=== PATIENT | male | born 1950 | race Caucasian/White ===

== ENCOUNTER 2018-04-26 15:24 | Inpatient (IN) ==
[2018-04-26 17:50] LABS: CKMB % 6.9 %
[2018-04-26 17:51] LABS: Troponin I Only 0.738 NG/ML (0.00-0.045)
[2018-04-26 18:51] LABS: ABG Base Excess -0.5 MMOL/L (-2.5-2.5); ABG HCO3 23.6 MMOL/L (20-26); ABG Oxygen Saturation 71.3 % (95-100); ABG PCO2 46.1 MM HG (35-48); ABG PH 7.347 (7.35-7.45); ABG PO2 42.6 MM HG (80-95); ABG TCO2 23.7 MMOL/L (23-27)
[2018-04-26 19:11] LABS: Basophils % 0.3 % (0.0-0.8); Eosinophils % 0.2 % (0.00-10.9); Hematocrit 25.2 VOL% (42.0-52.0); Hemoglobin 8.3 GM/DL (14.0-18.0); Immature Granulocytes % 1.8 %; Immature Granulocytes Absolute 0.17 #; Lymphocytes # 0.7 10*3/uL (1.4-4.0); Lymphocytes % 7.1 % (21.2-54.2); Mean Corpuscular HGB Conc 32.9 GM/DL (32-36); Mean Corpuscular Hemoglobin 33 PG (27-34); Mean Corpuscular Volume 100.4 FL (87-102); Mean Platelet Volume 10.5 FL (9.6-12.0); Monocytes # 0.6 10*3/uL (0.11-0.8); Monocytes % 6.5 % (1.7-12.7); Neutrophils % 84.1 % (38.7-73.9); Platelet Count 251 T/CUMM (130-400); Red Blood Count 2.51 MC/CUMM (3.8-5.5); Red Cell Distribution Width 15.9 % (9.3-17.3); White Blood Count 9.5 T/CUMM (4-12)
[2018-04-26 19:15] LABS: Apearance,Urine CLEAR (Clear); Bacteria,Urine Occasional /HPF (Few); Bilirubin,Urine Negative (Negative); Blood, Urine Negative (Negative); Glucose,Urine (UA) >=500 mg/dL (Negative); Hyaline Casts,Urine 1 /LPF (0-3); Ketones,Urine Negative (Negative); Nitrite,Urine Negative (Negative); Protein,Urine 30 MG/DL; RBC,Urine 2 /HPF (0-4); Urine Color Straw (Yellow); Urine Specific Gravity 1.008 (1.001-1.035); Urine Urobilinogen < 2.0 EU/DL (0.2-1.0); WBC,Urine 13 /HPF (0-6)
[2018-04-26 19:39] LABS: Albumin 3.2 G/DL (3.4-5.0); Bilirubin,Total 0.4 MG/DL (0.2-1.0); Calcium 7.4 MG/DL (8.5-10.1); Osmolality,Calculated 310.7 MOS/KG (273-304); Potassium 4.6 MMOL/L (3.5-5.1); Total Protein 6.7 G/DL (6.4-8.3)
[2018-04-26 21:41] LABS: Pt O2 Delivery Device Ventilator
[2018-04-26 21:42] LABS: ABG Base Excess 0.7 MMOL/L (-2.5-2.5); ABG HCO3 26.6 MMOL/L (20-26); ABG Oxygen Saturation 98.9 % (95-100); ABG PCO2 49.2 MM HG (35-48); ABG PH 7.351 (7.35-7.45); ABG PO2 281.9 MM HG (80-95); ABG TCO2 28.1 MMOL/L (23-27)
[2018-04-27 00:59] LABS: Basophils % 0.1 % (0.0-0.8); Hematocrit 23.1 VOL% (42.0-52.0); Hemoglobin 7.8 GM/DL (14.0-18.0); Immature Granulocytes % 0.8 %; Immature Granulocytes Absolute 0.07 #; Lymphocytes # 0.4 10*3/uL (1.4-4.0); Mean Corpuscular HGB Conc 33.8 GM/DL (32-36); Mean Corpuscular Hemoglobin 34 PG (27-34); Mean Corpuscular Volume 99.6 FL (87-102); Mean Platelet Volume 10.9 FL (9.6-12.0); Monocytes # 0.2 10*3/uL (0.11-0.8); Monocytes % 2.2 % (1.7-12.7); Neutrophils # 7.9 10*3/uL (1.4-7.4); Neutrophils % 91.9 % (38.7-73.9); Platelet Count 211 T/CUMM (130-400); Red Blood Count 2.32 MC/CUMM (3.8-5.5); Red Cell Distribution Width 15.9 % (9.3-17.3); White Blood Count 8.6 T/CUMM (4-12)
[2018-04-27 01:18] LABS: Albumin 2.9 G/DL (3.4-5.0); Bilirubin,Total 0.5 MG/DL (0.2-1.0); Calcium 7.4 MG/DL (8.5-10.1); Osmolality,Calculated 314.1 MOS/KG (273-304); Potassium 4.4 MMOL/L (3.5-5.1); Total Protein 6.1 G/DL (6.4-8.3)
[2018-04-27 01:19] LABS: Band Neutrophils 1 % (0-10); Lymphocytes 8 % (20-55); Segmented Neutrophils 91 % (50-85); Total Cells Counted 100
[2018-04-27 01:20] LABS: Calcium 7.3 MG/DL (8.5-10.1); Macrocytosis 2+; Osmolality,Calculated 313.1 MOS/KG (273-304); Platelet Estimate Normal; Potassium 4.4 MMOL/L (3.5-5.1); Risk Ratio 3.65; VLDL CHOLESTEROL 51.4 MG/DL
[2018-04-27 01:33] LABS: CKMB % 10.5 %
[2018-04-27 04:43] LABS: ABG Base Excess -1.2 MMOL/L (-2.5-2.5); ABG HCO3 23.4 MMOL/L (20-26); ABG Oxygen Saturation 99.4 % (95-100); ABG PCO2 32.8 MM HG (35-48); ABG PH 7.442 (7.35-7.45); ABG TCO2 20.5 MMOL/L (23-27); Pt O2 Delivery Device Ventilator
[2018-04-27 08:25] LABS: Basophils % 0.1 % (0.0-0.8); Hematocrit 28.1 VOL% (42.0-52.0); Immature Granulocytes % 0.8 %; Immature Granulocytes Absolute 0.06 #; Lymphocytes # 0.5 10*3/uL (1.4-4.0); Lymphocytes % 5.6 % (21.2-54.2); Mean Corpuscular HGB Conc 34.2 GM/DL (32-36); Mean Corpuscular Hemoglobin 32 PG (27-34); Monocytes # 0.2 10*3/uL (0.11-0.8); Monocytes % 2.6 % (1.7-12.7); Neutrophils # 7.3 10*3/uL (1.4-7.4); Neutrophils % 90.9 % (38.7-73.9); Platelet Count 199 T/CUMM (130-400); Red Cell Distribution Width 16.4 % (9.3-17.3)
[2018-04-27 08:33] LABS: Red Blood Count 3.02 MC/CUMM (3.8-5.5)
[2018-04-27 08:34] LABS: Hemoglobin 9.6 GM/DL (14.0-18.0)
[2018-04-27 08:58] LABS: Anisocytosis 1+; Band Neutrophils 16 % (0-10); Lymphocytes 3 % (20-55); Platelet Estimate Normal; Polychromasia Slight; Segmented Neutrophils 81 % (50-85); Total Cells Counted 100
[2018-04-27 09:07] LABS: CKMB % 10.7 %
[2018-04-27 16:42] LABS: Basophils % 0.1 % (0.0-0.8); Hemoglobin 9.1 GM/DL (14.0-18.0); Immature Granulocytes % 0.7 %; Immature Granulocytes Absolute 0.06 #; Lymphocytes # 0.4 10*3/uL (1.4-4.0); Lymphocytes % 4.6 % (21.2-54.2); Mean Corpuscular HGB Conc 33.7 GM/DL (32-36); Mean Corpuscular Hemoglobin 32 PG (27-34); Mean Corpuscular Volume 95.7 FL (87-102); Mean Platelet Volume 10.9 FL (9.6-12.0); Monocytes # 0.2 10*3/uL (0.11-0.8); Monocytes % 2.7 % (1.7-12.7); Neutrophils # 7.6 10*3/uL (1.4-7.4); Neutrophils % 91.9 % (38.7-73.9); Platelet Count 197 T/CUMM (130-400); Red Blood Count 2.82 MC/CUMM (3.8-5.5); Red Cell Distribution Width 16.4 % (9.3-17.3); White Blood Count 8.2 T/CUMM (4-12)
[2018-04-27 17:13] LABS: Band Neutrophils 1 % (0-10); Lymphocytes 7 % (20-55); Nucleated Red Blood Cells 1 (0-5); Segmented Neutrophils 89 % (50-85); Total Cells Counted 100
[2018-04-27 17:14] LABS: Anisocytosis 1+; Polychromasia 1+
[2018-04-27 17:15] LABS: Ovalocytes Few; Platelet Estimate Adequate
[2018-04-27 17:25] LABS: Folate 22.9 NG/ML (5.4-24.0); Vitamin B12 409 PG/ML (211-911)
[2018-04-28 03:22] LABS: Basophils % 0.1 % (0.0-0.8); Hematocrit 28.9 VOL% (42.0-52.0); Hemoglobin 9.9 GM/DL (14.0-18.0); Immature Granulocytes % 0.7 %; Immature Granulocytes Absolute 0.07 #; Lymphocytes # 0.4 10*3/uL (1.4-4.0); Lymphocytes % 3.6 % (21.2-54.2); Mean Corpuscular HGB Conc 34.3 GM/DL (32-36); Mean Corpuscular Hemoglobin 32 PG (27-34); Mean Corpuscular Volume 94.1 FL (87-102); Monocytes # 0.3 10*3/uL (0.11-0.8); Monocytes % 3.4 % (1.7-12.7); Neutrophils % 92.2 % (38.7-73.9); Platelet Count 206 T/CUMM (130-400); Red Blood Count 3.07 MC/CUMM (3.8-5.5); Red Cell Distribution Width 16.4 % (9.3-17.3); White Blood Count 9.8 T/CUMM (4-12)
[2018-04-28 03:25] LABS: ABG Base Excess -0.7 MMOL/L (-2.5-2.5); ABG HCO3 23.8 MMOL/L (20-26); ABG Oxygen Saturation 95.2 % (95-100); ABG PCO2 39.9 MM HG (35-48); ABG PH 7.389 (7.35-7.45); ABG PO2 78.1 MM HG (80-95); ABG TCO2 21.9 MMOL/L (23-27); Allen Test Positive; Pt O2 Delivery Device Ventilator
[2018-04-28 03:50] LABS: Calcium 8.3 MG/DL (8.5-10.1); Potassium 4.4 MMOL/L (3.5-5.1)
[2018-04-28 04:33] LABS: Band Neutrophils 1 % (0-10); Lymphocytes 6 % (20-55); Platelet Estimate Normal; Segmented Neutrophils 90 % (50-85); Total Cells Counted 100
[2018-04-28 09:01] LABS: CKMB % 9.5 %
[2018-04-28 09:02] LABS: Troponin I Only 25.5 NG/ML (0.00-0.045)
[2018-04-28 09:35] LABS: Sedimentation Rate-Westergren 32 MM/HR (0-20)
[2018-04-29 03:46] LABS: ABG Base Excess 0.1 MMOL/L (-2.5-2.5); ABG HCO3 24.5 MMOL/L (20-26); ABG PCO2 39.4 MM HG (35-48); ABG PH 7.405 (7.35-7.45); ABG TCO2 22.6 MMOL/L (23-27)
[2018-04-29 04:54] LABS: Hemoglobin 9.4 GM/DL (14.0-18.0); Immature Granulocytes % 1.2 %; Lymphocytes # 0.3 10*3/uL (1.4-4.0); Mean Corpuscular HGB Conc 32.4 GM/DL (32-36); Mean Corpuscular Hemoglobin 32 PG (27-34); Mean Corpuscular Volume 99.3 FL (87-102); Mean Platelet Volume 11.2 FL (9.6-12.0); Monocytes # 0.3 10*3/uL (0.11-0.8); Monocytes % 3.5 % (1.7-12.7); NRBC # 0.02 10*3/uL; Neutrophils # 7.9 10*3/uL (1.4-7.4); Neutrophils % 92.3 % (38.7-73.9); Platelet Count 187 T/CUMM (130-400); Red Blood Count 2.92 MC/CUMM (3.8-5.5); Red Cell Distribution Width 16.4 % (9.3-17.3); White Blood Count 8.6 T/CUMM (4-12)
[2018-04-29 05:18] LABS: Calcium 7.5 MG/DL (8.5-10.1); Lymphocytes 4 % (20-55); Osmolality,Calculated 322.8 MOS/KG (273-304); Platelet Estimate Adequate; Potassium 4.4 MMOL/L (3.5-5.1); Segmented Neutrophils 93 % (50-85); Total Cells Counted 100
[2018-04-29 05:19] LABS: Calcium 7.1 MG/DL (8.5-10.1); Hypochromasia 1+; Potassium 4.4 MMOL/L (3.5-5.1)
[2018-04-29 05:24] LABS: Albumin 2.9 G/DL (3.4-5.0); Bilirubin,Direct 0.16 MG/DL (0.0-0.20); Bilirubin,Indirect 0.6 MG/DL (0.0-1.0); Bilirubin,Total 0.8 MG/DL (0.2-1.0); Total Protein 6.1 G/DL (6.4-8.3)
[2018-04-29 10:35] LABS: Hemoglobin A1 (Alkaline) 97.1 % (96.5-98.5); Hemoglobin A2 (Alkaline) 2.9 % (1.5-3.5)
[2018-04-30 04:16] LABS: ABG Base Excess 3.5 MMOL/L (-2.5-2.5); ABG HCO3 27.6 MMOL/L (20-26); ABG Oxygen Saturation 98.9 % (95-100); ABG PCO2 44.2 MM HG (35-48); ABG PH 7.417 (7.35-7.45); ABG TCO2 25.9 MMOL/L (23-27); Allen Test Positive; Pt O2 Delivery Device Ventilator
[2018-04-30 05:33] LABS: Eosinophils % 0.6 % (0.00-10.9); Hematocrit 29.6 VOL% (42.0-52.0); Hemoglobin 9.8 GM/DL (14.0-18.0); Immature Granulocytes % 1.4 %; Immature Granulocytes Absolute 0.09 #; Lymphocytes # 0.6 10*3/uL (1.4-4.0); Mean Corpuscular HGB Conc 33.1 GM/DL (32-36); Mean Corpuscular Hemoglobin 33 PG (27-34); Monocytes # 0.5 10*3/uL (0.11-0.8); Monocytes % 7.9 % (1.7-12.7); Neutrophils # 5.2 10*3/uL (1.4-7.4); Neutrophils % 81.1 % (38.7-73.9); Platelet Count 169 T/CUMM (130-400); Red Blood Count 2.96 MC/CUMM (3.8-5.5); Red Cell Distribution Width 16.3 % (9.3-17.3); White Blood Count 6.4 T/CUMM (4-12)
[2018-04-30 05:48] LABS: Calcium 7.3 MG/DL (8.5-10.1); Potassium 3.7 MMOL/L (3.5-5.1)
[2018-04-30 05:49] LABS: Calcium 7.2 MG/DL (8.5-10.1)
[2018-04-30 05:50] LABS: Osmolality,Calculated 328.3 MOS/KG (273-304); Potassium 3.7 MMOL/L (3.5-5.1)
[2018-05-01 04:29] LABS: Eosinophils # 0.1 10*3/uL (0.0-0.87); Eosinophils % 0.7 % (0.00-10.9); Hematocrit 33.3 VOL% (42.0-52.0); Immature Granulocytes % 1.7 %; Immature Granulocytes Absolute 0.14 #; Lymphocytes # 0.7 10*3/uL (1.4-4.0); Mean Corpuscular Hemoglobin 32 PG (27-34); Mean Corpuscular Volume 96.5 FL (87-102); Mean Platelet Volume 11.2 FL (9.6-12.0); Monocytes # 0.7 10*3/uL (0.11-0.8); Monocytes % 8.6 % (1.7-12.7); Neutrophils # 6.8 10*3/uL (1.4-7.4); Platelet Count 193 T/CUMM (130-400); Red Blood Count 3.45 MC/CUMM (3.8-5.5); Red Cell Distribution Width 15.9 % (9.3-17.3); White Blood Count 8.3 T/CUMM (4-12)
[2018-05-01 04:36] LABS: Osmolality,Calculated 321.4 MOS/KG (273-304); Potassium 3.5 MMOL/L (3.5-5.1)
[2018-05-02 03:46] LABS: Basophils % 0.1 % (0.0-0.8); Eosinophils # 0.2 10*3/uL (0.0-0.87); Eosinophils % 2.1 % (0.00-10.9); Hematocrit 30.5 VOL% (42.0-52.0); Hemoglobin 10.2 GM/DL (14.0-18.0); Immature Granulocytes % 1.5 %; Immature Granulocytes Absolute 0.12 #; Lymphocytes # 0.7 10*3/uL (1.4-4.0); Mean Corpuscular HGB Conc 33.4 GM/DL (32-36); Mean Corpuscular Hemoglobin 32 PG (27-34); Mean Corpuscular Volume 95.9 FL (87-102); Mean Platelet Volume 11.4 FL (9.6-12.0); Monocytes # 0.8 10*3/uL (0.11-0.8); Neutrophils % 77.3 % (38.7-73.9); Platelet Count 190 T/CUMM (130-400); Red Blood Count 3.18 MC/CUMM (3.8-5.5); White Blood Count 7.8 T/CUMM (4-12)
[2018-05-02 04:27] LABS: Osmolality,Calculated 321.8 MOS/KG (273-304); Potassium 3.3 MMOL/L (3.5-5.1)
[2018-05-03 03:50] LABS: Basophils % 0.2 % (0.0-0.8); Eosinophils # 0.2 10*3/uL (0.0-0.87); Eosinophils % 2.8 % (0.00-10.9); Hematocrit 29.1 VOL% (42.0-52.0); Hemoglobin 9.8 GM/DL (14.0-18.0); Immature Granulocytes % 1.3 %; Immature Granulocytes Absolute 0.08 #; Lymphocytes # 0.7 10*3/uL (1.4-4.0); Lymphocytes % 11.6 % (21.2-54.2); Mean Corpuscular HGB Conc 33.7 GM/DL (32-36); Mean Corpuscular Hemoglobin 32 PG (27-34); Mean Corpuscular Volume 95.1 FL (87-102); Mean Platelet Volume 11.3 FL (9.6-12.0); Monocytes # 0.7 10*3/uL (0.11-0.8); Monocytes % 10.2 % (1.7-12.7); Neutrophils # 4.7 10*3/uL (1.4-7.4); Neutrophils % 73.9 % (38.7-73.9); Platelet Count 165 T/CUMM (130-400); Red Blood Count 3.06 MC/CUMM (3.8-5.5); Red Cell Distribution Width 14.8 % (9.3-17.3); White Blood Count 6.4 T/CUMM (4-12)
[2018-05-03 04:54] LABS: Calcium 8.3 MG/DL (8.5-10.1); Potassium 3.2 MMOL/L (3.5-5.1)
[2018-05-03 08:16] VITALS: BP 157/68
== END 2018-05-03 11:52 | disposition home health service (06) | DRG 280 ==
LOC: SUATTDRO → N.CL 15:24 → N.CC 15:54 → SUATTDRO 16:39 → N.CC 18:37 → N.TELES 05-01 20:56
PROVIDERS: ADMIT Family Medicine; ATTEND Hospitalist

== ENCOUNTER 2018-05-31 07:43 | Inpatient (IN) ==
[2018-05-31] MEDS ORDERED: PROPOFOL 1,000 MG/100 ML BOTTLE IV ONE (08:59)
[2018-05-31] MEDS ORDERED: ALBUTEROL 2.5 MG/3 ML NEB RESP TX PRN (09:05)
[2018-05-31] MEDS ORDERED: ONDANSETRON 4 MG/2 ML VIAL IV PRN (09:05)
[2018-05-31] MEDS: PROPOFOL 1,000 MG/100 ML BOTTLE IV SCH ×3 (09:10→17:12)
[2018-05-31 10:09] LABS: ABG Base Excess 1.2 MMOL/L (-2.5-2.5); ABG HCO3 26.3 MMOL/L (20-26); ABG Oxygen Saturation 94.3 % (95-100); ABG PCO2 43.9 MM HG (35-48); ABG PH 7.396 (7.35-7.45); ABG PO2 77.2 MM HG (80-95); ABG TCO2 27.7 MMOL/L (23-27)
[2018-05-31 10:15] LABS: Basophils % 0.4 % (0.0-0.8); Eosinophils # 0.2 10*3/uL (0.0-0.87); Eosinophils % 2.4 % (0.00-10.9); Hematocrit 27.8 VOL% (42.0-52.0); Hemoglobin 9.4 GM/DL (14.0-18.0); Immature Granulocytes % 1.6 %; Immature Granulocytes Absolute 0.13 #; Lymphocytes # 0.2 10*3/uL (1.4-4.0); Lymphocytes % 2.6 % (21.2-54.2); Mean Corpuscular HGB Conc 33.8 GM/DL (32-36); Mean Corpuscular Hemoglobin 32 PG (27-34); Mean Corpuscular Volume 94.6 FL (87-102); Monocytes # 0.4 10*3/uL (0.11-0.8); Neutrophils # 7.2 10*3/uL (1.4-7.4); Platelet Count 182 T/CUMM (130-400); Red Blood Count 2.94 MC/CUMM (3.8-5.5); Red Cell Distribution Width 15.7 % (9.3-17.3); White Blood Count 8.2 T/CUMM (4-12)
[2018-05-31 10:53] LABS: Albumin 2.5 G/DL (3.4-5.0); Bilirubin,Total 0.8 MG/DL (0.2-1.0); Calcium 8.4 MG/DL (8.5-10.1); Osmolality,Calculated 303.1 MOS/KG (273-304); Total Protein 6.4 G/DL (6.4-8.3)
[2018-05-31] MEDS: PANTOPRAZOLE 40 MG VIAL IV SCH (11:41)
[2018-05-31] MEDS: methylPREDNISolone SOD SUC 40 MG/1 ML VIAL IV SCH (11:41)
[2018-05-31] MEDS: POTASSIUM CHLORIDE 20 MEQ/15 ML UDCUP PER TUBE PRN ×3 (11:42→16:47)
[2018-05-31] MEDS: INSULIN REGULAR 100 UNIT/ML SUBCUT SCH ×2 (11:46→19:03)
[2018-05-31 11:50] LABS: Apearance,Urine CLOUDY (Clear); Bacteria,Urine Occasional /HPF (Few); Bilirubin,Urine Negative (Negative); Blood, Urine Negative (Negative); Glucose,Urine (UA) Negative (Negative); Ketones,Urine Negative (Negative); Mucus,Urine Occasional /LPF (Occasional); Nitrite,Urine Negative (Negative); Protein,Urine 100 MG/DL; RBC,Urine 2 /HPF (0-4); Squamous Epithelial Cell,Urine Occasional /HPF (0-10); Urine Color Yellow (Yellow); Urine Specific Gravity 1.012 (1.001-1.035); Urine Urobilinogen < 2.0 EU/DL (0.2-1.0); WBC,Urine 11 /HPF (0-6)
[2018-05-31] MEDS ORDERED: ALBUTEROL 1.25 MG/3 ML NEB RESP TX PRN (11:53)
[2018-05-31 12:39] LABS: Anisocytosis 1+; Lymphocytes 5 % (20-55); Segmented Neutrophils 90 % (50-85); Total Cells Counted 100
[2018-05-31 12:40] LABS: Ovalocytes Slight; Platelet Estimate Adequate; Polychromasia Slight
[2018-05-31] MEDS ORDERED: ASPIRIN 325 MG TABLET PO ONE (16:14)
[2018-05-31] MEDS ORDERED: ENOXAPARIN 80 MG/0.8 ML SYRINGE SUBCUT ONE (16:15)
[2018-05-31] MEDS: AMIODARONE INJ 450 MG in DEXTROSE 5% 241 ML IV SCH (16:48)
[2018-05-31] MEDS: ROSUVASTATIN 20 MG TABLET PO SCH (16:48)
[2018-05-31] MEDS: METOPROLOL TARTRATE 25 MG TABLET PO SCH (21:11)
[2018-05-31] MEDS: ENOXAPARIN 30 MG/0.3 ML SYRINGE SUBCUT SCH (21:11)
[2018-06-01] MEDS: INSULIN REGULAR 100 UNIT/ML SUBCUT SCH ×4 (00:06→18:44)
[2018-06-01] MEDS: PROPOFOL 1,000 MG/100 ML BOTTLE IV SCH ×3 (01:08→21:50)
[2018-06-01 03:21] LABS: Pt O2 Delivery Device Ventilator
[2018-06-01 03:22] LABS: ABG Base Excess -0.2 MMOL/L (-2.5-2.5); ABG HCO3 23.8 MMOL/L (20-26); ABG Oxygen Saturation 98.4 % (95-100); ABG PCO2 36.3 MM HG (35-48); ABG PH 7.434 (7.35-7.45); ABG PO2 151.1 MM HG (80-95); ABG TCO2 24.9 MMOL/L (23-27)
[2018-06-01 04:09] LABS: Risk Ratio 4.7; VLDL CHOLESTEROL 45.4 MG/DL
[2018-06-01] MEDS: AMIODARONE INJ 450 MG in DEXTROSE 5% 241 ML IV SCH ×2 (08:21→08:22)
[2018-06-01 08:29] LABS: Troponin I 0.579 NG/ML (0.00-0.045)
[2018-06-01 08:45] LABS: Basophils % 0.2 % (0.0-0.8); Eosinophils # 0.1 10*3/uL (0.0-0.87); Eosinophils % 2.1 % (0.00-10.9); Hematocrit 27.4 VOL% (42.0-52.0); Hemoglobin 9.5 GM/DL (14.0-18.0); Immature Granulocytes % 0.5 %; Immature Granulocytes Absolute 0.03 #; Lymphocytes # 0.5 10*3/uL (1.4-4.0); Mean Corpuscular HGB Conc 34.7 GM/DL (32-36); Mean Corpuscular Hemoglobin 33 PG (27-34); Mean Corpuscular Volume 94.2 FL (87-102); Mean Platelet Volume 10.8 FL (9.6-12.0); Monocytes # 0.4 10*3/uL (0.11-0.8); Monocytes % 7.8 % (1.7-12.7); Neutrophils # 4.6 10*3/uL (1.4-7.4); Neutrophils % 81.4 % (38.7-73.9); Platelet Count 170 T/CUMM (130-400); Red Blood Count 2.91 MC/CUMM (3.8-5.5); Red Cell Distribution Width 16.1 % (9.3-17.3); White Blood Count 5.6 T/CUMM (4-12)
[2018-06-01 09:13] LABS: Calcium 8.4 MG/DL (8.5-10.1); Osmolality,Calculated 300.1 MOS/KG (273-304); Potassium 3.8 MMOL/L (3.5-5.1)
[2018-06-01] MEDS: ROSUVASTATIN 20 MG TABLET PO SCH (10:02)
[2018-06-01] MEDS: methylPREDNISolone SOD SUC 40 MG/1 ML VIAL IV SCH (10:03)
[2018-06-01] MEDS: PANTOPRAZOLE 40 MG VIAL IV SCH (10:03)
[2018-06-01] MEDS: METOPROLOL TARTRATE 25 MG TABLET PO SCH ×3 (10:03→21:41)
[2018-06-01] MEDS: ASPIRIN CHEW 81 MG TABLET PO SCH (10:03)
[2018-06-01 11:27] LABS: Troponin I 0.585 NG/ML (0.00-0.045)
[2018-06-01] MEDS: NITROGLYCERIN 2% OINT 1 INCH/GM PACK TOP SCH ×2 (12:57→18:43)
[2018-06-01] MEDS ORDERED: GLUCAGON 1 MG VIAL IM PRN (14:47)
[2018-06-01] MEDS ORDERED: DEXTROSE 50% 25 GM/50 ML VIAL IV PRN (14:47)
[2018-06-01 14:54] LABS: Troponin I 0.522 NG/ML (0.00-0.045)
[2018-06-01] MEDS: POTASSIUM CHLORIDE 20 MEQ/15 ML UDCUP PER TUBE PRN (19:02)
[2018-06-01] MEDS: ENOXAPARIN 30 MG/0.3 ML SYRINGE SUBCUT SCH (21:41)
[2018-06-02] MEDS: AMIODARONE INJ 450 MG in DEXTROSE 5% 241 ML IV SCH ×2 (00:44→06:01)
[2018-06-02] MEDS: NITROGLYCERIN 2% OINT 1 INCH/GM PACK TOP SCH ×3 (00:44→13:14)
[2018-06-02] MEDS: INSULIN REGULAR 100 UNIT/ML SUBCUT SCH ×4 (01:29→18:33)
[2018-06-02] MEDS: PROPOFOL 1,000 MG/100 ML BOTTLE IV SCH ×2 (01:50→06:22)
[2018-06-02 03:49] LABS: ABG HCO3 22.7 MMOL/L (20-26); ABG Oxygen Saturation 99.3 % (95-100); ABG PCO2 33.3 MM HG (35-48); ABG PH 7.425 (7.35-7.45); Allen Test Positive; Pt O2 Delivery Device Ventilator
[2018-06-02 04:16] LABS: Basophils % 0.2 % (0.0-0.8); Eosinophils % 0.7 % (0.00-10.9); Hematocrit 28.8 VOL% (42.0-52.0); Hemoglobin 9.4 GM/DL (14.0-18.0); Immature Granulocytes % 1.1 %; Immature Granulocytes Absolute 0.06 #; Lymphocytes # 0.6 10*3/uL (1.4-4.0); Lymphocytes % 9.7 % (21.2-54.2); Mean Corpuscular HGB Conc 32.6 GM/DL (32-36); Mean Corpuscular Hemoglobin 32 PG (27-34); Mean Platelet Volume 11.9 FL (9.6-12.0); Monocytes # 0.4 10*3/uL (0.11-0.8); Monocytes % 6.7 % (1.7-12.7); Neutrophils # 4.6 10*3/uL (1.4-7.4); Neutrophils % 81.6 % (38.7-73.9); Platelet Count 153 T/CUMM (130-400); Red Blood Count 2.94 MC/CUMM (3.8-5.5); Red Cell Distribution Width 15.6 % (9.3-17.3); White Blood Count 5.7 T/CUMM (4-12)
[2018-06-02 04:42] LABS: Calcium 8.3 MG/DL (8.5-10.1); Osmolality,Calculated 308.4 MOS/KG (273-304); Potassium 3.9 MMOL/L (3.5-5.1)
[2018-06-02] MEDS: ASPIRIN CHEW 81 MG TABLET PO SCH (08:05)
[2018-06-02] MEDS: ROSUVASTATIN 20 MG TABLET PO SCH (08:05)
[2018-06-02] MEDS ORDERED: FUROSEMIDE 40 MG/4 ML VIAL IV ONE (08:29)
[2018-06-02] MEDS: PANTOPRAZOLE 40 MG VIAL IV SCH (08:45)
[2018-06-02] MEDS: methylPREDNISolone SOD SUC 40 MG/1 ML VIAL IV SCH (08:45)
[2018-06-02] MEDS: POTASSIUM CHLORIDE 20 MEQ/15 ML UDCUP PER TUBE PRN (08:45)
[2018-06-02] MEDS: AMIODARONE 200 MG TABLET PO SCH ×2 (08:46→21:37)
[2018-06-02] MEDS: METOPROLOL TARTRATE 25 MG TABLET PO SCH ×2 (14:44→21:37)
[2018-06-02] MEDS: ENOXAPARIN 30 MG/0.3 ML SYRINGE SUBCUT SCH (21:37)
[2018-06-02] MEDS: INSULIN GLARGINE 100 UNIT/ML SUBCUT SCH (21:37)
[2018-06-03] MEDS: INSULIN REGULAR 100 UNIT/ML SUBCUT SCH ×4 (00:31→18:35)
[2018-06-03 04:28] LABS: Basophils % 0.2 % (0.0-0.8); Eosinophils # 0.1 10*3/uL (0.0-0.87); Eosinophils % 1.1 % (0.00-10.9); Hemoglobin 10.2 GM/DL (14.0-18.0); Immature Granulocytes % 1.4 %; Immature Granulocytes Absolute 0.09 #; Lymphocytes # 0.8 10*3/uL (1.4-4.0); Lymphocytes % 12.5 % (21.2-54.2); Mean Corpuscular Hemoglobin 32 PG (27-34); Mean Corpuscular Volume 92.9 FL (87-102); Monocytes # 0.5 10*3/uL (0.11-0.8); Monocytes % 7.7 % (1.7-12.7); Neutrophils % 77.1 % (38.7-73.9); Platelet Count 208 T/CUMM (130-400); Red Blood Count 3.23 MC/CUMM (3.8-5.5); Red Cell Distribution Width 15.4 % (9.3-17.3); White Blood Count 6.5 T/CUMM (4-12)
[2018-06-03 05:02] LABS: Calcium 8.5 MG/DL (8.5-10.1); Osmolality,Calculated 306.4 MOS/KG (273-304); Potassium 3.5 MMOL/L (3.5-5.1)
[2018-06-03 05:09] LABS: Albumin 2.7 G/DL (3.4-5.0); Bilirubin,Direct 0.16 MG/DL (0.0-0.20); Bilirubin,Indirect 0.3 MG/DL (0.0-1.0); Bilirubin,Total 0.5 MG/DL (0.2-1.0); Total Protein 6.6 G/DL (6.4-8.3)
[2018-06-03] MEDS: POTASSIUM CHLORIDE 20 MEQ/15 ML UDCUP PER TUBE PRN ×2 (05:14→06:55)
[2018-06-03] MEDS: ISOSORBIDE MONONITRATE 30 MG TABLET PO SCH (08:37)
[2018-06-03] MEDS: AMIODARONE 200 MG TABLET PO SCH ×2 (08:37→21:45)
[2018-06-03] MEDS: ROSUVASTATIN 20 MG TABLET PO SCH (08:37)
[2018-06-03] MEDS: ASPIRIN CHEW 81 MG TABLET PO SCH (08:37)
[2018-06-03] MEDS: METOPROLOL TARTRATE 25 MG TABLET PO SCH ×2 (08:38→21:45)
[2018-06-03] MEDS: PANTOPRAZOLE 40 MG TABLET PO SCH (08:38)
[2018-06-03] MEDS: methylPREDNISolone SOD SUC 40 MG/1 ML VIAL IV SCH (10:25)
[2018-06-03] MEDS ORDERED: hydrALAZINE 20 MG/1 ML VIAL IV PRN (11:14)
[2018-06-03] MEDS: ASCORBIC ACID 500 MG TABLET PO SCH ×2 (11:43→21:45)
[2018-06-03] MEDS: INSULIN GLARGINE 100 UNIT/ML SUBCUT SCH (21:45)
[2018-06-03] MEDS: ENOXAPARIN 30 MG/0.3 ML SYRINGE SUBCUT SCH (21:45)
[2018-06-04] MEDS: INSULIN REGULAR 100 UNIT/ML SUBCUT SCH ×5 (02:50→21:42)
[2018-06-04 04:15] LABS: Basophils % 0.3 % (0.0-0.8); Eosinophils # 0.1 10*3/uL (0.0-0.87); Eosinophils % 1.2 % (0.00-10.9); Hematocrit 31.9 VOL% (42.0-52.0); Hemoglobin 10.4 GM/DL (14.0-18.0); Immature Granulocytes % 1.2 %; Immature Granulocytes Absolute 0.09 #; Lymphocytes % 14.1 % (21.2-54.2); Mean Corpuscular HGB Conc 32.6 GM/DL (32-36); Mean Corpuscular Hemoglobin 32 PG (27-34); Mean Corpuscular Volume 97.3 FL (87-102); Monocytes # 0.6 10*3/uL (0.11-0.8); Monocytes % 7.4 % (1.7-12.7); Neutrophils # 5.6 10*3/uL (1.4-7.4); Neutrophils % 75.8 % (38.7-73.9); Platelet Count 236 T/CUMM (130-400); Red Blood Count 3.28 MC/CUMM (3.8-5.5); Red Cell Distribution Width 15.2 % (9.3-17.3); White Blood Count 7.4 T/CUMM (4-12)
[2018-06-04 04:56] LABS: Calcium 8.2 MG/DL (8.5-10.1); Osmolality,Calculated 310.4 MOS/KG (273-304)
[2018-06-04] MEDS ORDERED: ceFAZolin 1,000 MG in SYRINGE 1 EACH IV ONE (06:30)
[2018-06-04] MEDS ORDERED: PNEUMOCOCCAL VACCINE (13 VALENT) 0.5 ML SYRINGE IM ONE (09:00)
[2018-06-04] MEDS ORDERED: ceFAZolin 1,000 MG VIAL IRRIG ONE (09:00)
[2018-06-04] MEDS: METOPROLOL TARTRATE 25 MG TABLET PO SCH ×2 (11:06→21:42)
[2018-06-04] MEDS: ROSUVASTATIN 20 MG TABLET PO SCH (11:06)
[2018-06-04] MEDS: methylPREDNISolone SOD SUC 40 MG/1 ML VIAL IV SCH (11:07)
[2018-06-04] MEDS: ISOSORBIDE MONONITRATE 30 MG TABLET PO SCH (11:07)
[2018-06-04] MEDS: ASCORBIC ACID 500 MG TABLET PO SCH ×2 (11:07→21:42)
[2018-06-04] MEDS: ASPIRIN CHEW 81 MG TABLET PO SCH (11:07)
[2018-06-04] MEDS: AMIODARONE 200 MG TABLET PO SCH ×2 (11:07→21:42)
[2018-06-04] MEDS: PANTOPRAZOLE 40 MG TABLET PO SCH (11:07)
[2018-06-04] MEDS ORDERED: DIAZEPAM 5 MG TABLET PO ONE (11:12)
[2018-06-04] MEDS ORDERED: diphenhydrAMINE CAP 25 MG CAPSULE PO ONE (11:12)
[2018-06-04] MEDS ORDERED: LIDOCAINE 1%/EPI INJ 20 ML VIAL ONE (12:17)
[2018-06-04] MEDS ORDERED: ceFAZolin 1,000 MG VIAL ONE (12:19)
[2018-06-04] MEDS ORDERED: TISSUE ADHESIVE 1 EACH APPLICATOR TOP ONE (13:05)
[2018-06-04] MEDS ORDERED: ACETAMINOPHEN 325 MG TABLET PO PRN (14:00)
[2018-06-04] MEDS ORDERED: oxyCODONE/ACETAMINOPHEN 5-325 MG TABLET PO PRN (14:00)
[2018-06-04] MEDS ORDERED: fentaNYL 100 MCG/2 ML VIAL ONE (14:24)
[2018-06-04] MEDS ORDERED: ETOMIDATE 40 MG/20 ML VIAL IV ONE (14:24)
[2018-06-04] MEDS ORDERED: MIDAZOLAM 2 MG/2 ML VIAL ONE (14:24)
[2018-06-04] MEDS ORDERED: SEVOFLURANE 1 UNIT/15 MINUTE INH ONE (14:25)
[2018-06-04] MEDS ORDERED: LACTATED RINGERS 1,000 ML IV ONE (14:25)
[2018-06-04] MEDS ORDERED: ePHEDrine 50 MG/ML AMP ONE (14:26)
[2018-06-04] MEDS ORDERED: INSULIN GLARGINE 100 UNIT/ML SUBCUT SCH (21:00)
[2018-06-04] MEDS: ENOXAPARIN 30 MG/0.3 ML SYRINGE SUBCUT SCH (21:45)
[2018-06-05] MEDS: INSULIN REGULAR 100 UNIT/ML SUBCUT SCH ×3 (00:24→13:38)
[2018-06-05 05:10] LABS: Basophils % 0.3 % (0.0-0.8); Eosinophils # 0.1 10*3/uL (0.0-0.87); Eosinophils % 1.4 % (0.00-10.9); Hematocrit 29.7 VOL% (42.0-52.0); Immature Granulocytes % 1.6 %; Immature Granulocytes Absolute 0.12 #; Lymphocytes # 1.1 10*3/uL (1.4-4.0); Lymphocytes % 15.5 % (21.2-54.2); Mean Corpuscular HGB Conc 33.7 GM/DL (32-36); Mean Corpuscular Hemoglobin 32 PG (27-34); Mean Corpuscular Volume 93.7 FL (87-102); Monocytes # 0.7 10*3/uL (0.11-0.8); Neutrophils # 5.3 10*3/uL (1.4-7.4); Neutrophils % 72.2 % (38.7-73.9); Platelet Count 250 T/CUMM (130-400); Red Blood Count 3.17 MC/CUMM (3.8-5.5); Red Cell Distribution Width 14.7 % (9.3-17.3); White Blood Count 7.3 T/CUMM (4-12)
[2018-06-05 05:32] LABS: Calcium 8.1 MG/DL (8.5-10.1); Osmolality,Calculated 305.1 MOS/KG (273-304); Potassium 3.7 MMOL/L (3.5-5.1)
[2018-06-05 05:33] LABS: Calcium 8.2 MG/DL (8.5-10.1); Osmolality,Calculated 305.1 MOS/KG (273-304); Potassium 3.7 MMOL/L (3.5-5.1)
[2018-06-05 05:35] LABS: Microcytosis 1+; Ovalocytes Slight; Platelet Estimate Normal
[2018-06-05] MEDS: ROSUVASTATIN 20 MG TABLET PO SCH (08:53)
[2018-06-05] MEDS: ASCORBIC ACID 500 MG TABLET PO SCH (08:54)
[2018-06-05] MEDS: ISOSORBIDE MONONITRATE 30 MG TABLET PO SCH (08:54)
[2018-06-05] MEDS: ASPIRIN CHEW 81 MG TABLET PO SCH (08:54)
[2018-06-05] MEDS: AMIODARONE 200 MG TABLET PO SCH (08:54)
[2018-06-05] MEDS: METOPROLOL TARTRATE 25 MG TABLET PO SCH (08:54)
[2018-06-05] MEDS: PANTOPRAZOLE 40 MG TABLET PO SCH (08:54)
[2018-06-05] MEDS: methylPREDNISolone SOD SUC 40 MG/1 ML VIAL IV SCH (08:55)
[2018-06-05 11:33] VITALS: BP 142/76
== END 2018-06-05 13:55 | disposition home health service (06) | DRG 226 ==
LOC: SUATTDRO 08:59 → N.ICU 08:59 → N.TELEN 06-03 10:14
PROVIDERS: ADMIT Internal Medicine Geriatric Medicine; ATTEND Internal Medicine
PROC: CLSCICD (2018-06-04 12:45)

== ENCOUNTER 2018-06-17 15:52 | Inpatient (IN) ==
[2018-06-17] MEDS ORDERED: ASPIRIN 325 MG TABLET PO STA (16:02)
[2018-06-17 16:22] LABS: Basophils % 0.2 % (0.0-0.8); Eosinophils # 0.1 10*3/uL (0.0-0.87); Eosinophils % 0.7 % (0.00-10.9); Hematocrit 26.2 VOL% (42.0-52.0); Immature Granulocytes % 1.1 %; Immature Granulocytes Absolute 0.12 #; Lymphocytes # 0.7 10*3/uL (1.4-4.0); Lymphocytes % 6.4 % (21.2-54.2); Mean Corpuscular HGB Conc 34.4 GM/DL (32-36); Mean Corpuscular Hemoglobin 33 PG (27-34); Mean Corpuscular Volume 94.6 FL (87-102); Mean Platelet Volume 10.4 FL (9.6-12.0); Monocytes # 0.7 10*3/uL (0.11-0.8); Monocytes % 5.9 % (1.7-12.7); Neutrophils # 9.5 10*3/uL (1.4-7.4); Neutrophils % 85.7 % (38.7-73.9); Platelet Count 217 T/CUMM (130-400); Red Blood Count 2.77 MC/CUMM (3.8-5.5); Red Cell Distribution Width 15.4 % (9.3-17.3); White Blood Count 11.1 T/CUMM (4-12)
[2018-06-17 16:44] LABS: Albumin 3.1 G/DL (3.4-5.0); Bilirubin,Total 0.9 MG/DL (0.2-1.0); Calcium 8.9 MG/DL (8.5-10.1); Osmolality,Calculated 299.7 MOS/KG (273-304); Potassium 4.3 MMOL/L (3.5-5.1); Total Protein 7.1 G/DL (6.4-8.3)
[2018-06-17] MEDS ORDERED: ALUM/MAG/SIMETH/LIDO VISC 1:1 30 ML BOTTLE PO STA (17:00)
[2018-06-17 17:11] LABS: % Iron Saturation 9.5 % (18-50); Ferritin 94.5 ng/ml (26-388)
[2018-06-17 17:13] LABS: Folate > 24.0 NG/ML (5.4-24.0); Vitamin B12 412 PG/ML (211-911)
[2018-06-17 17:37] LABS: Apearance,Urine CLEAR (Clear); Bilirubin,Urine Negative (Negative); Blood, Urine Negative (Negative); Glucose,Urine (UA) Negative (Negative); Ketones,Urine Negative (Negative); Mucus,Urine Occasional /LPF (Occasional); Nitrite,Urine Negative (Negative); Protein,Urine 30 MG/DL; RBC,Urine <1 /HPF (0-4); Urine Color Straw (Yellow); Urine Specific Gravity 1.005 (1.001-1.035); Urine Urobilinogen < 2.0 EU/DL (0.2-1.0); WBC,Urine <1 /HPF (0-6)
[2018-06-17] MEDS ORDERED: FUROSEMIDE 40 MG/4 ML VIAL IV STA (17:47)
[2018-06-17] MEDS ORDERED: ACETAMINOPHEN 325 MG TABLET PO PRN (18:16)
[2018-06-17] MEDS ORDERED: ALBUTEROL/IPRATROPIUM 3 ML NEB RESP TX PRN (18:18)
[2018-06-17] MEDS ORDERED: GLUCAGON 1 MG VIAL IM PRN (18:22)
[2018-06-17] MEDS ORDERED: DEXTROSE 50% 25 GM/50 ML VIAL IV PRN (18:22)
[2018-06-17] MEDS: ALBUTEROL/IPRATROPIUM 3 ML NEB RESP TX SCH (19:53)
[2018-06-17] MEDS: CARVEDILOL 25 MG TABLET PO SCH (22:04)
[2018-06-17] MEDS: INSULIN LISPRO 100 UNIT/ML SUBCUT SCH (22:05)
[2018-06-17] MEDS: INSULIN GLARGINE 100 UNIT/ML SUBCUT SCH (22:06)
[2018-06-18 05:55] LABS: Basophils % 0.3 % (0.0-0.8); Eosinophils # 0.1 10*3/uL (0.0-0.87); Eosinophils % 1.7 % (0.00-10.9); Hematocrit 24.2 VOL% (42.0-52.0); Hemoglobin 8.1 GM/DL (14.0-18.0); Immature Granulocytes % 1.8 %; Immature Granulocytes Absolute 0.11 #; Lymphocytes # 0.8 10*3/uL (1.4-4.0); Lymphocytes % 13.8 % (21.2-54.2); Mean Corpuscular HGB Conc 33.5 GM/DL (32-36); Mean Corpuscular Hemoglobin 32 PG (27-34); Mean Corpuscular Volume 95.7 FL (87-102); Mean Platelet Volume 10.8 FL (9.6-12.0); Monocytes # 0.5 10*3/uL (0.11-0.8); Monocytes % 8.1 % (1.7-12.7); NRBC # 0.05 10*3/uL; Neutrophils # 4.5 10*3/uL (1.4-7.4); Neutrophils % 74.3 % (38.7-73.9); Platelet Count 183 T/CUMM (130-400); Red Blood Count 2.53 MC/CUMM (3.8-5.5); Red Cell Distribution Width 15.4 % (9.3-17.3)
[2018-06-18 06:13] LABS: Risk Ratio 2.16
[2018-06-18 06:18] LABS: Calcium 8.4 MG/DL (8.5-10.1); Osmolality,Calculated 297.8 MOS/KG (273-304); Potassium 3.8 MMOL/L (3.5-5.1); Thyroid Stimulating Hormone 4.81 uIU/ml (0.358-3.74)
[2018-06-18 06:26] LABS: Troponin I 0.199 NG/ML (0.00-0.045)
[2018-06-18] MEDS: ONDANSETRON 4 MG/2 ML VIAL IV PRN (06:43)
[2018-06-18] MEDS: ALBUTEROL/IPRATROPIUM 3 ML NEB RESP TX SCH ×4 (07:20→19:09)
[2018-06-18] MEDS: CARVEDILOL 25 MG TABLET PO SCH ×2 (08:58→16:34)
[2018-06-18] MEDS: INSULIN LISPRO 100 UNIT/ML SUBCUT SCH ×4 (08:58→22:05)
[2018-06-18] MEDS: FUROSEMIDE 40 MG/4 ML VIAL IV SCH ×2 (08:59→15:20)
[2018-06-18] MEDS ORDERED: PANTOPRAZOLE 40 MG TABLET PO SCH (09:00)
[2018-06-18] MEDS ORDERED: ASCORBIC ACID 500 MG TABLET PO SCH (09:00)
[2018-06-18] MEDS: COENZYME Q10 100 MG CAPSULE PO SCH (12:18)
[2018-06-18] MEDS: POTASSIUM CHLORIDE 20 MEQ TABLET PO SCH (12:19)
[2018-06-18] MEDS: ROSUVASTATIN 20 MG TABLET PO SCH (12:19)
[2018-06-18] MEDS: predniSONE 10 MG TABLET PO SCH (12:19)
[2018-06-18] MEDS: OMEGA 3 ACID ETHYL ESTERS 1 GM CAPSULE PO SCH (12:19)
[2018-06-18] MEDS: ASPIRIN CHEW 81 MG TABLET PO SCH (12:19)
[2018-06-18] MEDS: ISOSORBIDE MONONITRATE 30 MG TABLET PO SCH (12:19)
[2018-06-18] MEDS: MULTIVITAMIN (INTRINSIC) CAPSULE PO SCH (12:19)
[2018-06-18] MEDS: MULTIVITAMIN (CENTRUM) TABLET PO SCH (12:19)
[2018-06-18] MEDS ORDERED: SODIUM CHLORIDE 0.9% 1,000 ML IV PRN (14:24)
[2018-06-18] MEDS ORDERED: FUROSEMIDE 100 MG/10 ML VIAL IV PRN (14:42)
[2018-06-18] MEDS: RANOLAZINE 500 MG TABLET PO SCH ×2 (15:19→22:07)
[2018-06-18] MEDS: INSULIN GLARGINE 100 UNIT/ML SUBCUT SCH (22:06)
[2018-06-18] MEDS: ASCORBIC ACID 500 MG TABLET PO SCH (22:07)
[2018-06-18] MEDS: PANTOPRAZOLE 40 MG TABLET PO SCH (22:07)
[2018-06-19 06:29] LABS: Basophils % 0.4 % (0.0-0.8); Eosinophils # 0.1 10*3/uL (0.0-0.87); Eosinophils % 1.5 % (0.00-10.9); Hematocrit 28.5 VOL% (42.0-52.0); Hemoglobin 9.7 GM/DL (14.0-18.0); Immature Granulocytes % 0.8 %; Immature Granulocytes Absolute 0.06 #; Lymphocytes # 0.8 10*3/uL (1.4-4.0); Lymphocytes % 10.9 % (21.2-54.2); Mean Corpuscular Hemoglobin 32 PG (27-34); Mean Corpuscular Volume 92.8 FL (87-102); Mean Platelet Volume 10.8 FL (9.6-12.0); Monocytes # 0.4 10*3/uL (0.11-0.8); Monocytes % 5.7 % (1.7-12.7); Neutrophils # 5.9 10*3/uL (1.4-7.4); Neutrophils % 80.7 % (38.7-73.9); Platelet Count 157 T/CUMM (130-400); Red Blood Count 3.07 MC/CUMM (3.8-5.5); Red Cell Distribution Width 15.6 % (9.3-17.3); White Blood Count 7.3 T/CUMM (4-12)
[2018-06-19 06:44] LABS: Calcium 8.2 MG/DL (8.5-10.1); Potassium 3.9 MMOL/L (3.5-5.1)
[2018-06-19] MEDS: ALBUTEROL/IPRATROPIUM 3 ML NEB RESP TX SCH ×4 (07:15→19:23)
[2018-06-19] MEDS ORDERED: MIDAZOLAM 2 MG/2 ML VIAL ONE ×2 (09:00→10:39)
[2018-06-19] MEDS: CARVEDILOL 25 MG TABLET PO SCH ×2 (09:09→16:43)
[2018-06-19] MEDS: ISOSORBIDE MONONITRATE 30 MG TABLET PO SCH (09:10)
[2018-06-19] MEDS: INSULIN LISPRO 100 UNIT/ML SUBCUT SCH ×4 (09:19→20:25)
[2018-06-19] MEDS: FUROSEMIDE 40 MG/4 ML VIAL IV SCH ×2 (11:19→16:43)
[2018-06-19] MEDS: ROSUVASTATIN 20 MG TABLET PO SCH (12:41)
[2018-06-19] MEDS: PANTOPRAZOLE 40 MG TABLET PO SCH ×2 (12:41→20:22)
[2018-06-19] MEDS: MULTIVITAMIN (CENTRUM) TABLET PO SCH (12:41)
[2018-06-19] MEDS: MULTIVITAMIN (INTRINSIC) CAPSULE PO SCH (12:41)
[2018-06-19] MEDS: ASCORBIC ACID 500 MG TABLET PO SCH ×2 (12:41→20:22)
[2018-06-19] MEDS: POTASSIUM CHLORIDE 20 MEQ TABLET PO SCH (12:41)
[2018-06-19] MEDS: predniSONE 10 MG TABLET PO SCH (12:42)
[2018-06-19] MEDS: ASPIRIN CHEW 81 MG TABLET PO SCH (12:42)
[2018-06-19] MEDS: OMEGA 3 ACID ETHYL ESTERS 1 GM CAPSULE PO SCH (12:42)
[2018-06-19] MEDS: RANOLAZINE 500 MG TABLET PO SCH ×2 (12:42→20:22)
[2018-06-19] MEDS: COENZYME Q10 100 MG CAPSULE PO SCH (12:43)
[2018-06-19] MEDS: INSULIN GLARGINE 100 UNIT/ML SUBCUT SCH (20:25)
[2018-06-20 06:26] LABS: Basophils % 0.3 % (0.0-0.8); Eosinophils # 0.1 10*3/uL (0.0-0.87); Eosinophils % 1.9 % (0.00-10.9); Hematocrit 28.3 VOL% (42.0-52.0); Hemoglobin 9.3 GM/DL (14.0-18.0); Immature Granulocytes % 0.8 %; Immature Granulocytes Absolute 0.05 #; Lymphocytes # 0.7 10*3/uL (1.4-4.0); Lymphocytes % 11.1 % (21.2-54.2); Mean Corpuscular HGB Conc 32.9 GM/DL (32-36); Mean Corpuscular Hemoglobin 32 PG (27-34); Mean Corpuscular Volume 96.6 FL (87-102); Mean Platelet Volume 11.3 FL (9.6-12.0); Monocytes # 0.4 10*3/uL (0.11-0.8); Monocytes % 6.9 % (1.7-12.7); Platelet Count 161 T/CUMM (130-400); Red Blood Count 2.93 MC/CUMM (3.8-5.5); Red Cell Distribution Width 15.5 % (9.3-17.3); White Blood Count 6.4 T/CUMM (4-12)
[2018-06-20 06:54] LABS: Calcium 8.5 MG/DL (8.5-10.1); Osmolality,Calculated 300.5 MOS/KG (273-304); Potassium 3.7 MMOL/L (3.5-5.1)
[2018-06-20] MEDS: ALBUTEROL/IPRATROPIUM 3 ML NEB RESP TX SCH ×4 (08:16→19:05)
[2018-06-20] MEDS: RANOLAZINE 500 MG TABLET PO SCH ×2 (09:40→20:41)
[2018-06-20] MEDS: PANTOPRAZOLE 40 MG TABLET PO SCH ×2 (09:40→20:41)
[2018-06-20] MEDS: MULTIVITAMIN (INTRINSIC) CAPSULE PO SCH (09:40)
[2018-06-20] MEDS: FUROSEMIDE 40 MG/4 ML VIAL IV SCH ×2 (09:41→15:50)
[2018-06-20] MEDS: ASCORBIC ACID 500 MG TABLET PO SCH ×2 (09:42→20:41)
[2018-06-20] MEDS: INSULIN LISPRO 100 UNIT/ML SUBCUT SCH ×4 (09:42→20:41)
[2018-06-20] MEDS: ASPIRIN CHEW 81 MG TABLET PO SCH (09:42)
[2018-06-20] MEDS: POTASSIUM CHLORIDE 20 MEQ TABLET PO SCH (09:42)
[2018-06-20] MEDS: MULTIVITAMIN (CENTRUM) TABLET PO SCH (09:42)
[2018-06-20] MEDS: OMEGA 3 ACID ETHYL ESTERS 1 GM CAPSULE PO SCH (09:43)
[2018-06-20] MEDS: CARVEDILOL 25 MG TABLET PO SCH ×2 (09:43→17:19)
[2018-06-20] MEDS: ISOSORBIDE MONONITRATE 30 MG TABLET PO SCH (09:43)
[2018-06-20] MEDS: predniSONE 10 MG TABLET PO SCH (09:43)
[2018-06-20] MEDS: ROSUVASTATIN 20 MG TABLET PO SCH (09:49)
[2018-06-20] MEDS: COENZYME Q10 100 MG CAPSULE PO SCH (09:49)
[2018-06-20] MEDS ORDERED: BISACODYL 10 MG SUPP RECTAL ONE (12:58)
[2018-06-20] MEDS ORDERED: MAGNESIUM HYDROXIDE SUSP 30 ML UDCUP PO PRN (12:58)
[2018-06-20] MEDS: POLYETHYLENE GLYCOL POWDER 17 GM PACK PO SCH (14:09)
[2018-06-20] MEDS: INSULIN GLARGINE 100 UNIT/ML SUBCUT SCH (20:43)
[2018-06-21] MEDS: ONDANSETRON 4 MG/2 ML VIAL IV PRN (06:29)
[2018-06-21] MEDS: ALBUTEROL/IPRATROPIUM 3 ML NEB RESP TX SCH ×4 (06:54→19:18)
[2018-06-21] MEDS: INSULIN LISPRO 100 UNIT/ML SUBCUT SCH ×4 (08:04→21:24)
[2018-06-21] MEDS: ASPIRIN CHEW 81 MG TABLET PO SCH (08:05)
[2018-06-21] MEDS: MULTIVITAMIN (CENTRUM) TABLET PO SCH (08:05)
[2018-06-21] MEDS: CARVEDILOL 25 MG TABLET PO SCH ×2 (08:05→16:31)
[2018-06-21] MEDS: COENZYME Q10 100 MG CAPSULE PO SCH (08:05)
[2018-06-21] MEDS: ASCORBIC ACID 500 MG TABLET PO SCH ×2 (08:06→21:21)
[2018-06-21] MEDS: ISOSORBIDE MONONITRATE 30 MG TABLET PO SCH (08:06)
[2018-06-21] MEDS: OMEGA 3 ACID ETHYL ESTERS 1 GM CAPSULE PO SCH (08:06)
[2018-06-21] MEDS: ROSUVASTATIN 20 MG TABLET PO SCH (08:06)
[2018-06-21] MEDS: POLYETHYLENE GLYCOL POWDER 17 GM PACK PO SCH (08:06)
[2018-06-21] MEDS: predniSONE 10 MG TABLET PO SCH (08:06)
[2018-06-21] MEDS: MULTIVITAMIN (INTRINSIC) CAPSULE PO SCH (08:06)
[2018-06-21] MEDS: POTASSIUM CHLORIDE 20 MEQ TABLET PO SCH (08:06)
[2018-06-21] MEDS: PANTOPRAZOLE 40 MG TABLET PO SCH (08:06)
[2018-06-21] MEDS: RANOLAZINE 500 MG TABLET PO SCH ×2 (08:06→21:21)
[2018-06-21 08:34] LABS: Basophils % 0.3 % (0.0-0.8); Eosinophils # 0.2 10*3/uL (0.0-0.87); Eosinophils % 2.3 % (0.00-10.9); Hematocrit 30.8 VOL% (42.0-52.0); Hemoglobin 10.1 GM/DL (14.0-18.0); Immature Granulocytes % 0.5 %; Immature Granulocytes Absolute 0.04 #; Lymphocytes # 0.7 10*3/uL (1.4-4.0); Lymphocytes % 8.7 % (21.2-54.2); Mean Corpuscular HGB Conc 32.8 GM/DL (32-36); Mean Corpuscular Hemoglobin 32 PG (27-34); Mean Corpuscular Volume 97.2 FL (87-102); Mean Platelet Volume 11.8 FL (9.6-12.0); Monocytes # 0.5 10*3/uL (0.11-0.8); Monocytes % 6.7 % (1.7-12.7); Neutrophils # 6.1 10*3/uL (1.4-7.4); Neutrophils % 81.5 % (38.7-73.9); Platelet Count 112 T/CUMM (130-400); Red Blood Count 3.17 MC/CUMM (3.8-5.5); Red Cell Distribution Width 15.2 % (9.3-17.3); White Blood Count 7.4 T/CUMM (4-12)
[2018-06-21 08:39] LABS: Calcium 8.3 MG/DL (8.5-10.1); Osmolality,Calculated 297.7 MOS/KG (273-304); Potassium 3.8 MMOL/L (3.5-5.1)
[2018-06-21] MEDS: FUROSEMIDE 40 MG/4 ML VIAL IV SCH ×2 (08:53→16:30)
[2018-06-21] MEDS: PROCHLORPERAZINE 10 MG TABLET PO PRN (11:53)
[2018-06-21] MEDS: OMEPRAZOLE 20 MG CAPSULE PO SCH ×2 (11:58→21:20)
[2018-06-21 12:49] LABS: Macrocytosis 1+
[2018-06-21 12:50] LABS: Polychromasia Slight
[2018-06-21 15:57] LABS: PT Patient Result 10.6 SECS
[2018-06-21] MEDS: INSULIN GLARGINE 100 UNIT/ML SUBCUT SCH (21:21)
[2018-06-22 05:30] LABS: Basophils % 0.6 % (0.0-0.8); Eosinophils # 0.2 10*3/uL (0.0-0.87); Eosinophils % 3.2 % (0.00-10.9); Hematocrit 28.7 VOL% (42.0-52.0); Hemoglobin 9.7 GM/DL (14.0-18.0); Immature Granulocytes % 0.8 %; Immature Granulocytes Absolute 0.04 #; Lymphocytes # 0.6 10*3/uL (1.4-4.0); Lymphocytes % 11.9 % (21.2-54.2); Mean Corpuscular HGB Conc 33.8 GM/DL (32-36); Mean Corpuscular Hemoglobin 32 PG (27-34); Mean Corpuscular Volume 94.1 FL (87-102); Mean Platelet Volume 10.7 FL (9.6-12.0); Monocytes # 0.5 10*3/uL (0.11-0.8); Monocytes % 8.5 % (1.7-12.7); NRBC # 0.02 10*3/uL; Platelet Count 168 T/CUMM (130-400); Red Blood Count 3.05 MC/CUMM (3.8-5.5); Red Cell Distribution Width 15.3 % (9.3-17.3); White Blood Count 5.3 T/CUMM (4-12)
[2018-06-22 05:40] LABS: Calcium 8.4 MG/DL (8.5-10.1); Osmolality,Calculated 297.3 MOS/KG (273-304); Potassium 3.3 MMOL/L (3.5-5.1)
[2018-06-22] MEDS: ALBUTEROL/IPRATROPIUM 3 ML NEB RESP TX SCH ×5 (07:04→19:48)
[2018-06-22] MEDS: INSULIN LISPRO 100 UNIT/ML SUBCUT SCH ×4 (08:36→21:00)
[2018-06-22] MEDS: CARVEDILOL 25 MG TABLET PO SCH ×2 (08:37→17:38)
[2018-06-22] MEDS: ASPIRIN CHEW 81 MG TABLET PO SCH (08:37)
[2018-06-22] MEDS ORDERED: ceFAZolin 1,000 MG in SYRINGE 1 EACH IV ONE (09:18)
[2018-06-22] MEDS ORDERED: fentaNYL 100 MCG/2 ML VIAL IV ONE (09:18)
[2018-06-22] MEDS ORDERED: ONDANSETRON 4 MG/2 ML VIAL IV ONE ×2 (09:18→11:39)
[2018-06-22] MEDS ORDERED: DIAZEPAM 5 MG TABLET PO ONE (09:18)
[2018-06-22] MEDS ORDERED: MIDAZOLAM 2 MG/2 ML VIAL IV ONE (09:18)
[2018-06-22] MEDS ORDERED: ONDANSETRON 4 MG/2 ML VIAL ONE ×2 (10:43→11:32)
[2018-06-22] MEDS ORDERED: fentaNYL 100 MCG/2 ML VIAL ONE (10:43)
[2018-06-22] MEDS ORDERED: MIDAZOLAM 2 MG/2 ML VIAL ONE (10:43)
[2018-06-22] MEDS: FUROSEMIDE 40 MG/4 ML VIAL IV SCH ×2 (12:34→16:52)
[2018-06-22] MEDS: OMEPRAZOLE 20 MG CAPSULE PO SCH ×2 (12:35→21:00)
[2018-06-22] MEDS: predniSONE 10 MG TABLET PO SCH (12:35)
[2018-06-22] MEDS: POLYETHYLENE GLYCOL POWDER 17 GM PACK PO SCH (12:35)
[2018-06-22] MEDS: POTASSIUM CHLORIDE 20 MEQ TABLET PO SCH (12:35)
[2018-06-22] MEDS: ISOSORBIDE MONONITRATE 30 MG TABLET PO SCH (12:35)
[2018-06-22] MEDS: COENZYME Q10 100 MG CAPSULE PO SCH (12:35)
[2018-06-22] MEDS: ROSUVASTATIN 20 MG TABLET PO SCH (12:35)
[2018-06-22] MEDS: OMEGA 3 ACID ETHYL ESTERS 1 GM CAPSULE PO SCH (12:35)
[2018-06-22] MEDS: RANOLAZINE 500 MG TABLET PO SCH ×2 (12:35→21:00)
[2018-06-22] MEDS: MULTIVITAMIN (CENTRUM) TABLET PO SCH (12:35)
[2018-06-22] MEDS: MULTIVITAMIN (INTRINSIC) CAPSULE PO SCH (12:36)
[2018-06-22] MEDS: ASCORBIC ACID 500 MG TABLET PO SCH ×2 (12:36→21:00)
[2018-06-22] MEDS ORDERED: HYDROmorphone 2 MG/1 ML VIAL IV PRN (13:00)
[2018-06-22] MEDS: POTASSIUM CHLORIDE RIDER 10 MEQ in PREMIX 1 EACH IV SCH ×3 (13:38→16:52)
[2018-06-22] MEDS: SPIRONOLACTONE 25 MG TABLET PO SCH (13:48)
[2018-06-22] MEDS: ONDANSETRON 4 MG/2 ML VIAL IV PRN (14:19)
[2018-06-22] MEDS: PROCHLORPERAZINE 10 MG TABLET PO PRN (16:52)
[2018-06-22] MEDS: INSULIN GLARGINE 100 UNIT/ML SUBCUT SCH (21:00)
[2018-06-23] MEDS: ONDANSETRON 4 MG/2 ML VIAL IV PRN (00:13)
[2018-06-23 05:05] LABS: Calcium 8.9 MG/DL (8.5-10.1); Osmolality,Calculated 296.1 MOS/KG (273-304); Potassium 3.9 MMOL/L (3.5-5.1)
[2018-06-23] MEDS: INSULIN LISPRO 100 UNIT/ML SUBCUT SCH ×5 (08:03→21:12)
[2018-06-23] MEDS: ALBUTEROL/IPRATROPIUM 3 ML NEB RESP TX SCH ×4 (08:08→19:01)
[2018-06-23] MEDS: RANOLAZINE 500 MG TABLET PO SCH ×2 (09:09→21:10)
[2018-06-23] MEDS: POTASSIUM CHLORIDE 20 MEQ TABLET PO SCH (09:09)
[2018-06-23] MEDS: ROSUVASTATIN 20 MG TABLET PO SCH (09:09)
[2018-06-23] MEDS: PROCHLORPERAZINE 10 MG TABLET PO PRN (09:09)
[2018-06-23] MEDS: MULTIVITAMIN (CENTRUM) TABLET PO SCH (09:09)
[2018-06-23] MEDS: ISOSORBIDE MONONITRATE 30 MG TABLET PO SCH (09:09)
[2018-06-23] MEDS: OMEGA 3 ACID ETHYL ESTERS 1 GM CAPSULE PO SCH (09:09)
[2018-06-23] MEDS: MULTIVITAMIN (INTRINSIC) CAPSULE PO SCH (09:10)
[2018-06-23] MEDS: SPIRONOLACTONE 25 MG TABLET PO SCH (09:10)
[2018-06-23] MEDS: ASPIRIN CHEW 81 MG TABLET PO SCH (09:11)
[2018-06-23] MEDS: CARVEDILOL 25 MG TABLET PO SCH ×2 (09:11→16:17)
[2018-06-23] MEDS: predniSONE 10 MG TABLET PO SCH (09:11)
[2018-06-23] MEDS: FUROSEMIDE 40 MG/4 ML VIAL IV SCH ×2 (09:11→16:17)
[2018-06-23] MEDS: POLYETHYLENE GLYCOL POWDER 17 GM PACK PO SCH (09:15)
[2018-06-23] MEDS: ASCORBIC ACID 500 MG TABLET PO SCH ×2 (09:19→21:11)
[2018-06-23] MEDS: OMEPRAZOLE 20 MG CAPSULE PO SCH ×2 (09:20→21:13)
[2018-06-23] MEDS: COENZYME Q10 100 MG CAPSULE PO SCH (09:20)
[2018-06-23] MEDS ORDERED: POTASSIUM CHLORIDE 20 MEQ TABLET PO SCH (13:08)
[2018-06-23] MEDS: INSULIN GLARGINE 100 UNIT/ML SUBCUT SCH (21:12)
[2018-06-24] MEDS: ALBUTEROL/IPRATROPIUM 3 ML NEB RESP TX SCH ×2 (08:36→13:01)
[2018-06-24] MEDS: CARVEDILOL 25 MG TABLET PO SCH (10:00)
[2018-06-24] MEDS: INSULIN LISPRO 100 UNIT/ML SUBCUT SCH ×3 (10:00→15:32)
[2018-06-24] MEDS: FUROSEMIDE 40 MG/4 ML VIAL IV SCH ×2 (10:02→15:31)
[2018-06-24] MEDS: SPIRONOLACTONE 25 MG TABLET PO SCH (13:15)
[2018-06-24] MEDS: MULTIVITAMIN (CENTRUM) TABLET PO SCH (13:15)
[2018-06-24] MEDS: ASPIRIN CHEW 81 MG TABLET PO SCH (13:15)
[2018-06-24] MEDS: COENZYME Q10 100 MG CAPSULE PO SCH (13:16)
[2018-06-24] MEDS: POLYETHYLENE GLYCOL POWDER 17 GM PACK PO SCH (13:16)
[2018-06-24] MEDS: OMEGA 3 ACID ETHYL ESTERS 1 GM CAPSULE PO SCH (13:16)
[2018-06-24] MEDS: ROSUVASTATIN 20 MG TABLET PO SCH (13:16)
[2018-06-24] MEDS: ISOSORBIDE MONONITRATE 30 MG TABLET PO SCH (13:16)
[2018-06-24] MEDS: RANOLAZINE 500 MG TABLET PO SCH (13:17)
[2018-06-24] MEDS: OMEPRAZOLE 20 MG CAPSULE PO SCH (13:17)
[2018-06-24] MEDS: MULTIVITAMIN (INTRINSIC) CAPSULE PO SCH (13:17)
[2018-06-24] MEDS: predniSONE 10 MG TABLET PO SCH (13:17)
[2018-06-24] MEDS: ASCORBIC ACID 500 MG TABLET PO SCH (13:17)
[2018-06-24 16:00] VITALS: BP 153/77
== END 2018-06-24 16:55 | disposition home health service (06) | DRG 444 ==
LOC: N.EDINP 15:52 → N.ED 15:52 → SUATTDRO 17:51 → N.2E 19:07 → SUATTDRO 06-18 15:00
PROVIDERS: ADMIT Internal Medicine; ATTEND Internal Medicine Geriatric Medicine

== ENCOUNTER 2018-07-19 08:04 | Inpatient (IN) ==
[2018-07-19 09:32] LABS: Basophils % 0.3 % (0.0-0.8); Eosinophils # 0.2 10*3/uL (0.0-0.87); Eosinophils % 1.7 % (0.00-10.9); Hematocrit 30.9 VOL% (42.0-52.0); Hemoglobin 10.2 GM/DL (14.0-18.0); Immature Granulocytes % 1.2 %; Immature Granulocytes Absolute 0.14 #; Lymphocytes # 0.6 10*3/uL (1.4-4.0); Lymphocytes % 4.7 % (21.2-54.2); Mean Corpuscular Hemoglobin 30 PG (27-34); Mean Corpuscular Volume 92.2 FL (87-102); Mean Platelet Volume 10.5 FL (9.6-12.0); Monocytes # 0.7 10*3/uL (0.11-0.8); Monocytes % 5.5 % (1.7-12.7); Neutrophils # 10.4 10*3/uL (1.4-7.4); Neutrophils % 86.6 % (38.7-73.9); Platelet Count 227 T/CUMM (130-400); Red Blood Count 3.35 MC/CUMM (3.8-5.5); Red Cell Distribution Width 18.2 % (9.3-17.3)
[2018-07-19 09:55] LABS: Apearance,Urine CLEAR (Clear); Bilirubin,Urine Negative (Negative); Blood, Urine Negative (Negative); Glucose,Urine (UA) Negative (Negative); Ketones,Urine Negative (Negative); Nitrite,Urine Negative (Negative); Protein,Urine 30 MG/DL; RBC,Urine <1 /HPF (0-4); Urine Color Yellow (Yellow); Urine Specific Gravity 1.008 (1.001-1.035); Urine Urobilinogen < 2.0 EU/DL (0.2-1.0)
[2018-07-19 09:58] LABS: Albumin 3.3 G/DL (3.4-5.0); Bilirubin,Total 0.4 MG/DL (0.2-1.0); Calcium 8.5 MG/DL (8.5-10.1); Osmolality,Calculated 298.7 MOS/KG (273-304); Potassium 4.2 MMOL/L (3.5-5.1); Total Protein 7.5 G/DL (6.4-8.3)
[2018-07-19 09:59] LABS: Lactic Acid 1.4 MMOL/L (0.4-2.0)
[2018-07-19 11:43] LABS: Lymphocytes 4 % (20-55); Platelet Estimate Normal; Polychromasia Slight; Segmented Neutrophils 94 % (50-85); Total Cells Counted 100
[2018-07-19] MEDS ORDERED: DEXTROSE 50% 25 GM/50 ML VIAL IV PRN (12:05)
[2018-07-19] MEDS ORDERED: ONDANSETRON 4 MG/2 ML VIAL IV PRN (12:05)
[2018-07-19] MEDS ORDERED: GLUCAGON 1 MG VIAL IM PRN (12:05)
[2018-07-19] MEDS ORDERED: ACETAMINOPHEN 325 MG TABLET PO PRN (12:05)
[2018-07-19] MEDS ORDERED: PROMETHAZINE 25 MG/1 ML VIAL IM PRN (12:05)
[2018-07-19] MEDS ORDERED: HYDROmorphone 2 MG/1 ML VIAL IV PRN (12:08)
[2018-07-19] MEDS ORDERED: ALBUTEROL/IPRATROPIUM 3 ML NEB RESP TX PRN (12:20)
[2018-07-19] MEDS ORDERED: LACTULOSE 20 GM/30 ML UDCUP PO PRN (12:42)
[2018-07-19] MEDS ORDERED: NITROGLYCERIN SL 0.4 MG TABLET SL PRN (12:45)
[2018-07-19] MEDS: DOCUSATE/SENNA 50-8.6 MG TABLET PO SCH ×2 (14:21→21:29)
[2018-07-19] MEDS: ALBUTEROL/IPRATROPIUM 3 ML NEB RESP TX SCH ×2 (15:59→19:40)
[2018-07-19] MEDS: INSULIN LISPRO 100 UNIT/ML SUBCUT SCH ×2 (17:41→21:27)
[2018-07-19] MEDS ORDERED: DOCUSATE SODIUM 100 MG CAPSULE PO SCH (21:00)
[2018-07-19] MEDS ORDERED: INSULIN GLARGINE 100 UNIT/ML SUBCUT SCH ×2 (21:00)
[2018-07-19] MEDS: RANOLAZINE 500 MG TABLET PO SCH (21:29)
[2018-07-19] MEDS: CARVEDILOL 25 MG TABLET PO SCH (21:29)
[2018-07-20 05:13] LABS: Basophils % 0.6 % (0.0-0.8); Eosinophils # 0.2 10*3/uL (0.0-0.87); Eosinophils % 3.4 % (0.00-10.9); Hematocrit 30.4 VOL% (42.0-52.0); Hemoglobin 9.8 GM/DL (14.0-18.0); Immature Granulocytes % 0.7 %; Immature Granulocytes Absolute 0.05 #; Lymphocytes # 0.9 10*3/uL (1.4-4.0); Lymphocytes % 13.6 % (21.2-54.2); Mean Corpuscular HGB Conc 32.2 GM/DL (32-36); Mean Corpuscular Hemoglobin 30 PG (27-34); Mean Corpuscular Volume 93.8 FL (87-102); Mean Platelet Volume 10.8 FL (9.6-12.0); Monocytes # 0.7 10*3/uL (0.11-0.8); Neutrophils # 4.9 10*3/uL (1.4-7.4); Neutrophils % 71.7 % (38.7-73.9); Platelet Count 204 T/CUMM (130-400); Red Blood Count 3.24 MC/CUMM (3.8-5.5); Red Cell Distribution Width 18.1 % (9.3-17.3); White Blood Count 6.8 T/CUMM (4-12)
[2018-07-20 05:37] LABS: Albumin 3.2 G/DL (3.4-5.0); Bilirubin,Total 0.9 MG/DL (0.2-1.0); Calcium 8.7 MG/DL (8.5-10.1); Osmolality,Calculated 301.7 MOS/KG (273-304); Potassium 3.5 MMOL/L (3.5-5.1); Total Protein 6.8 G/DL (6.4-8.3)
[2018-07-20] MEDS: ALBUTEROL/IPRATROPIUM 3 ML NEB RESP TX SCH ×4 (07:16→14:30)
[2018-07-20] MEDS ORDERED: FUROSEMIDE 80 MG TABLET PO SCH (09:00)
[2018-07-20] MEDS ORDERED: MULTIVITAMIN (INTRINSIC) CAPSULE PO SCH (09:00)
[2018-07-20] MEDS ORDERED: ASPIRIN CHEW 81 MG TABLET PO SCH (09:00)
[2018-07-20] MEDS ORDERED: FOLIC ACID 1 MG TABLET PO SCH (09:00)
[2018-07-20] MEDS ORDERED: ISOSORBIDE MONONITRATE 30 MG TABLET PO SCH (09:00)
[2018-07-20] MEDS ORDERED: PANTOPRAZOLE 40 MG TABLET PO SCH (09:00)
[2018-07-20] MEDS ORDERED: ASCORBIC ACID 500 MG TABLET PO SCH (09:00)
[2018-07-20] MEDS ORDERED: POTASSIUM CHLORIDE 20 MEQ TABLET PO SCH (09:00)
[2018-07-20] MEDS ORDERED: ROSUVASTATIN 20 MG TABLET PO SCH (09:00)
[2018-07-20] MEDS ORDERED: MULTIVITAMIN (CENTRUM) TABLET PO SCH (09:00)
[2018-07-20] MEDS ORDERED: SPIRONOLACTONE 25 MG TABLET PO SCH (09:00)
[2018-07-20] MEDS ORDERED: predniSONE 10 MG TABLET PO SCH (09:00)
[2018-07-20] MEDS: RANOLAZINE 500 MG TABLET PO SCH (10:14)
[2018-07-20] MEDS: CARVEDILOL 25 MG TABLET PO SCH (10:14)
[2018-07-20] MEDS: INSULIN LISPRO 100 UNIT/ML SUBCUT SCH ×2 (10:15→11:30)
[2018-07-20] MEDS: DOCUSATE/SENNA 50-8.6 MG TABLET PO SCH (10:19)
[2018-07-20] MEDS ORDERED: NITROGLYCERIN 0.3 MG SL SCH (12:45)
[2018-07-20] MEDS ORDERED: OMEGA 3 ACID ETHYL ESTERS 1 GM CAPSULE PO SCH (14:00)
[2018-07-20 14:18] VITALS: BP 130/70
[2018-07-20] MEDS ORDERED: INSULIN GLARGINE 100 UNIT/ML SUBCUT SCH (21:00)
== END 2018-07-20 16:33 | disposition home health service (06) | DRG 920 ==
LOC: N.ED 08:04 → SUATTDRO 12:05 → N.EDINP 12:05 → N.5E 12:36
PROVIDERS: ADMIT Internal Medicine; ATTEND Internal Medicine

== ENCOUNTER 2018-08-07 11:13 | Inpatient (IN) ==
[2018-08-07] MEDS ORDERED: ONDANSETRON 4 MG/2 ML VIAL IV STA ×2 (11:39→13:03)
[2018-08-07 12:12] LABS: Albumin 3.3 G/DL (3.4-5.0); Bilirubin,Total 0.5 MG/DL (0.2-1.0); Calcium 8.6 MG/DL (8.5-10.1); Osmolality,Calculated 303.5 MOS/KG (273-304); Potassium 4.1 MMOL/L (3.5-5.1); Total Protein 7.2 G/DL (6.4-8.3)
[2018-08-07 12:47] LABS: Basophils % 0.3 % (0.0-0.8); Eosinophils # 0.1 10*3/uL (0.0-0.87); Eosinophils % 1.1 % (0.00-10.9); Hematocrit 24.9 VOL% (42.0-52.0); Hemoglobin 8.2 GM/DL (14.0-18.0); Immature Granulocytes % 1.3 %; Immature Granulocytes Absolute 0.17 #; Lymphocytes # 0.7 10*3/uL (1.4-4.0); Lymphocytes % 5.4 % (21.2-54.2); Mean Corpuscular HGB Conc 32.9 GM/DL (32-36); Mean Corpuscular Hemoglobin 31 PG (27-34); Mean Corpuscular Volume 94.7 FL (87-102); Mean Platelet Volume 10.4 FL (9.6-12.0); Monocytes # 0.9 10*3/uL (0.11-0.8); Monocytes % 6.5 % (1.7-12.7); Neutrophils # 11.3 10*3/uL (1.4-7.4); Neutrophils % 85.4 % (38.7-73.9); Platelet Count 251 T/CUMM (130-400); Red Blood Count 2.63 MC/CUMM (3.8-5.5); Red Cell Distribution Width 18.5 % (9.3-17.3); White Blood Count 13.2 T/CUMM (4-12)
[2018-08-07 13:07] LABS: Lactic Acid 1.5 MMOL/L (0.4-2.0)
[2018-08-07] MEDS ORDERED: SODIUM CHLORIDE 0.9% 1,000 ML IV PRN (13:37)
[2018-08-07] MEDS ORDERED: FUROSEMIDE 40 MG/4 ML VIAL IV STA (13:38)
[2018-08-07] MEDS ORDERED: PROMETHAZINE 25 MG/1 ML VIAL IM PRN (13:51)
[2018-08-07] MEDS ORDERED: MORPHINE 4 MG/1 ML VIAL IV PRN (13:51)
[2018-08-07] MEDS ORDERED: DOCUSATE SODIUM 100 MG CAPSULE PO PRN (13:51)
[2018-08-07] MEDS ORDERED: diphenhydrAMINE CAP 25 MG CAPSULE PO PRN (13:51)
[2018-08-07] MEDS ORDERED: ONDANSETRON 4 MG/2 ML VIAL IV PRN (13:51)
[2018-08-07] MEDS ORDERED: ACETAMINOPHEN 325 MG TABLET PO PRN (13:51)
[2018-08-07] MEDS ORDERED: ALBUTEROL/IPRATROPIUM 3 ML NEB RESP TX PRN (13:57)
[2018-08-07] MEDS ORDERED: NITROGLYCERIN SL 0.4 MG TABLET SL SCH (14:00)
[2018-08-07] MEDS ORDERED: DEXTROSE 50% 25 GM/50 ML VIAL IV PRN (14:24)
[2018-08-07] MEDS ORDERED: GLUCAGON 1 MG VIAL IM PRN (14:24)
[2018-08-07] MEDS ORDERED: cefTRIAXone 1,000 MG in SYRINGE 1 EACH IV SCH (15:00)
[2018-08-07] MEDS ORDERED: AZITHROMYCIN INJ 500 MG in SODIUM CHLORIDE 0.9% 250 ML IV SCH (15:00)
[2018-08-07] MEDS ORDERED: HYDROmorphone 2 MG/1 ML VIAL IV PRN (15:21)
[2018-08-07] MEDS: ALBUTEROL/IPRATROPIUM 3 ML NEB RESP TX SCH ×2 (15:40→19:34)
[2018-08-07] MEDS: FUROSEMIDE 40 MG/4 ML VIAL IV SCH ×2 (16:30→21:52)
[2018-08-07] MEDS: PIPERACILLIN/TAZOBACTAM 3,375 MG in SODIUM CHLORIDE 0.9% 100 ML IV SCH (16:30)
[2018-08-07] MEDS ORDERED: NITROGLYCERIN SL 0.4 MG TABLET SL PRN (16:30)
[2018-08-07 17:16] LABS: Apearance,Urine CLEAR (Clear); Bilirubin,Urine Negative (Negative); Blood, Urine Negative (Negative); Glucose,Urine (UA) Negative (Negative); Ketones,Urine Negative (Negative); Mucus,Urine Occasional /LPF (Occasional); Nitrite,Urine Negative (Negative); Protein,Urine 100 MG/DL; RBC,Urine 1 /HPF (0-4); Squamous Epithelial Cell,Urine Occasional /HPF (0-10); Urine Color Yellow (Yellow); Urine Specific Gravity 1.011 (1.001-1.035); Urine Urobilinogen < 2.0 EU/DL (0.2-1.0); WBC,Urine 1 /HPF (0-6)
[2018-08-07] MEDS: CARVEDILOL 25 MG TABLET PO SCH ×2 (17:44→21:51)
[2018-08-07] MEDS: ISOSORBIDE MONONITRATE 30 MG TABLET PO SCH (17:44)
[2018-08-07] MEDS: ASPIRIN CHEW 81 MG TABLET PO SCH (17:44)
[2018-08-07] MEDS: PANTOPRAZOLE 40 MG TABLET PO SCH (17:45)
[2018-08-07] MEDS: predniSONE 10 MG TABLET PO SCH (17:45)
[2018-08-07] MEDS: POTASSIUM CHLORIDE 20 MEQ TABLET PO SCH ×2 (17:45→21:51)
[2018-08-07] MEDS: RANOLAZINE 500 MG TABLET PO SCH ×2 (17:46→21:51)
[2018-08-07] MEDS: INSULIN LISPRO 100 UNIT/ML SUBCUT SCH ×2 (17:46→21:51)
[2018-08-07] MEDS ORDERED: ASCORBIC ACID 500 MG TABLET PO SCH (21:00)
[2018-08-08 01:24] LABS: Basophils % 0.2 % (0.0-0.8); Eosinophils # 0.1 10*3/uL (0.0-0.87); Eosinophils % 1.2 % (0.00-10.9); Hematocrit 28.2 VOL% (42.0-52.0); Hemoglobin 9.3 GM/DL (14.0-18.0); Immature Granulocytes % 1.5 %; Immature Granulocytes Absolute 0.13 #; Lymphocytes # 0.6 10*3/uL (1.4-4.0); Lymphocytes % 7.2 % (21.2-54.2); Mean Corpuscular Hemoglobin 31 PG (27-34); Mean Corpuscular Volume 92.5 FL (87-102); Mean Platelet Volume 10.4 FL (9.6-12.0); Monocytes # 0.5 10*3/uL (0.11-0.8); Monocytes % 5.9 % (1.7-12.7); Neutrophils # 7.1 10*3/uL (1.4-7.4); Platelet Count 209 T/CUMM (130-400); Red Blood Count 3.05 MC/CUMM (3.8-5.5); Red Cell Distribution Width 17.5 % (9.3-17.3); White Blood Count 8.5 T/CUMM (4-12)
[2018-08-08 01:30] LABS: Albumin 2.7 G/DL (3.4-5.0); Bilirubin,Total 1.2 MG/DL (0.2-1.0); Calcium 8.4 MG/DL (8.5-10.1); Osmolality,Calculated 304.8 MOS/KG (273-304); Potassium 4.1 MMOL/L (3.5-5.1); Total Protein 6.6 G/DL (6.4-8.3)
[2018-08-08 01:39] LABS: CKMB % 2.9 %
[2018-08-08 02:29] LABS: Troponin I 3.21 NG/ML (0.00-0.045)
[2018-08-08] MEDS: FUROSEMIDE 40 MG/4 ML VIAL IV SCH ×3 (03:13→14:45)
[2018-08-08] MEDS: ALBUTEROL/IPRATROPIUM 3 ML NEB RESP TX SCH ×4 (08:23→20:19)
[2018-08-08] MEDS: INSULIN LISPRO 100 UNIT/ML SUBCUT SCH ×3 (09:08→17:15)
[2018-08-08] MEDS: PANTOPRAZOLE 40 MG TABLET PO SCH ×2 (09:10→21:13)
[2018-08-08] MEDS: RANOLAZINE 500 MG TABLET PO SCH ×2 (09:10→21:07)
[2018-08-08] MEDS: POTASSIUM CHLORIDE 20 MEQ TABLET PO SCH (09:10)
[2018-08-08] MEDS: predniSONE 10 MG TABLET PO SCH (09:10)
[2018-08-08] MEDS: ASPIRIN CHEW 81 MG TABLET PO SCH (09:10)
[2018-08-08] MEDS: CARVEDILOL 25 MG TABLET PO SCH ×2 (10:51→21:07)
[2018-08-08] MEDS: ISOSORBIDE MONONITRATE 30 MG TABLET PO SCH (10:52)
[2018-08-08] MEDS: PIPERACILLIN/TAZOBACTAM 3,375 MG in SODIUM CHLORIDE 0.9% 100 ML IV SCH ×2 (11:47)
[2018-08-08] MEDS ORDERED: METOCLOPRAMIDE 10 MG/2 ML VIAL IV SCH (12:00)
[2018-08-08] MEDS ORDERED: GLUCAGON 1 MG VIAL IM PRN (16:12)
[2018-08-08] MEDS ORDERED: DEXTROSE 50% 25 GM/50 ML VIAL IV PRN (16:12)
[2018-08-08] MEDS: SUCRALFATE 1 GM/10 ML UDCUP PO SCH ×2 (17:15→21:08)
[2018-08-08] MEDS: INSULIN GLARGINE 100 UNIT/ML SUBCUT SCH (21:08)
[2018-08-08] MEDS: PSYLLIUM POWDER 3.7 GM/PACK PO SCH (21:09)
[2018-08-09] MEDS: PIPERACILLIN/TAZOBACTAM 3,375 MG in SODIUM CHLORIDE 0.9% 100 ML IV SCH ×2 (00:20→11:35)
[2018-08-09] MEDS: ALBUTEROL/IPRATROPIUM 3 ML NEB RESP TX SCH ×4 (07:21→19:44)
[2018-08-09] MEDS: INSULIN LISPRO 100 UNIT/ML SUBCUT SCH ×3 (08:03→16:40)
[2018-08-09] MEDS: SUCRALFATE 1 GM/10 ML UDCUP PO SCH ×4 (08:03→20:56)
[2018-08-09] MEDS: RANOLAZINE 500 MG TABLET PO SCH ×2 (08:04→20:57)
[2018-08-09] MEDS: ASPIRIN CHEW 81 MG TABLET PO SCH (08:04)
[2018-08-09] MEDS: CARVEDILOL 25 MG TABLET PO SCH ×2 (08:04→20:57)
[2018-08-09] MEDS: predniSONE 10 MG TABLET PO SCH (08:04)
[2018-08-09] MEDS: PANTOPRAZOLE 40 MG TABLET PO SCH ×3 (08:04→20:57)
[2018-08-09] MEDS: ISOSORBIDE MONONITRATE 30 MG TABLET PO SCH (08:06)
[2018-08-09] MEDS: PSYLLIUM POWDER 3.7 GM/PACK PO SCH ×3 (08:06→20:56)
[2018-08-09] MEDS ORDERED: AZITHROMYCIN 250 MG TABLET PO SCH (09:00)
[2018-08-09] MEDS ORDERED: SPIRONOLACTONE 25 MG TABLET PO SCH (11:30)
[2018-08-09] MEDS: INSULIN GLARGINE 100 UNIT/ML SUBCUT SCH (20:56)
[2018-08-09] MEDS: hydrALAZINE 25 MG TABLET PO SCH (20:57)
[2018-08-10] MEDS: PIPERACILLIN/TAZOBACTAM 3,375 MG in SODIUM CHLORIDE 0.9% 100 ML IV SCH (00:38)
[2018-08-10 02:42] LABS: Basophils % 0.3 % (0.0-0.8); Eosinophils # 0.2 10*3/uL (0.0-0.87); Eosinophils % 2.7 % (0.00-10.9); Hematocrit 25.9 VOL% (42.0-52.0); Hemoglobin 8.6 GM/DL (14.0-18.0); Immature Granulocytes % 0.7 %; Immature Granulocytes Absolute 0.05 #; Lymphocytes # 0.4 10*3/uL (1.4-4.0); Mean Corpuscular HGB Conc 33.2 GM/DL (32-36); Mean Corpuscular Hemoglobin 31 PG (27-34); Mean Corpuscular Volume 93.8 FL (87-102); Mean Platelet Volume 10.2 FL (9.6-12.0); Monocytes # 0.4 10*3/uL (0.11-0.8); Neutrophils % 86.3 % (38.7-73.9); Platelet Count 185 T/CUMM (130-400); Red Blood Count 2.76 MC/CUMM (3.8-5.5); Red Cell Distribution Width 17.1 % (9.3-17.3)
[2018-08-10 03:03] LABS: Albumin 2.5 G/DL (3.4-5.0); Bilirubin,Total 0.9 MG/DL (0.2-1.0); Osmolality,Calculated 309.8 MOS/KG (273-304); Potassium 3.7 MMOL/L (3.5-5.1); Total Protein 6.5 G/DL (6.4-8.3)
[2018-08-10] MEDS: guaiFENesin/DM ER 600-30 MG TABLET PO PRN ×2 (04:59→21:52)
[2018-08-10] MEDS: ALBUTEROL/IPRATROPIUM 3 ML NEB RESP TX SCH ×4 (06:50→18:58)
[2018-08-10] MEDS: hydrALAZINE 25 MG TABLET PO SCH ×2 (09:37→21:51)
[2018-08-10] MEDS: predniSONE 5 MG TABLET PO SCH (09:37)
[2018-08-10] MEDS: PANTOPRAZOLE 40 MG TABLET PO SCH ×2 (09:37→21:51)
[2018-08-10] MEDS: RANOLAZINE 500 MG TABLET PO SCH ×2 (09:37→21:51)
[2018-08-10] MEDS: ISOSORBIDE MONONITRATE 30 MG TABLET PO SCH (09:37)
[2018-08-10] MEDS: ASPIRIN CHEW 81 MG TABLET PO SCH (09:37)
[2018-08-10] MEDS: PSYLLIUM POWDER 3.7 GM/PACK PO SCH ×3 (09:37→22:10)
[2018-08-10] MEDS: CARVEDILOL 25 MG TABLET PO SCH ×2 (09:37→21:52)
[2018-08-10] MEDS: SUCRALFATE 1 GM/10 ML UDCUP PO SCH ×4 (09:37→21:52)
[2018-08-10] MEDS: INSULIN LISPRO 100 UNIT/ML SUBCUT SCH ×3 (09:38→17:11)
[2018-08-10] MEDS ORDERED: SODIUM CHLORIDE 0.9% 1,000 ML IV PRN (10:28)
[2018-08-10] MEDS: SPIRONOLACTONE 25 MG TABLET PO SCH (11:31)
[2018-08-10] MEDS ORDERED: FUROSEMIDE 40 MG/4 ML VIAL ONE (15:41)
[2018-08-10] MEDS ORDERED: FUROSEMIDE 40 MG/4 ML VIAL IV ONE (17:00)
[2018-08-10 19:39] LABS: % Iron Saturation 27.5 % (18-50)
[2018-08-10] MEDS: INSULIN GLARGINE 100 UNIT/ML SUBCUT SCH (21:52)
[2018-08-11 03:32] LABS: Basophils % 0.4 % (0.0-0.8); Eosinophils # 0.2 10*3/uL (0.0-0.87); Eosinophils % 3.4 % (0.00-10.9); Hematocrit 32.6 VOL% (42.0-52.0); Hemoglobin 10.7 GM/DL (14.0-18.0); Immature Granulocytes % 0.7 %; Immature Granulocytes Absolute 0.05 #; Lymphocytes # 0.4 10*3/uL (1.4-4.0); Lymphocytes % 6.1 % (21.2-54.2); Mean Corpuscular HGB Conc 32.8 GM/DL (32-36); Mean Corpuscular Hemoglobin 30 PG (27-34); Mean Corpuscular Volume 91.8 FL (87-102); Mean Platelet Volume 10.4 FL (9.6-12.0); Monocytes # 0.5 10*3/uL (0.11-0.8); Monocytes % 6.8 % (1.7-12.7); Neutrophils # 5.9 10*3/uL (1.4-7.4); Neutrophils % 82.6 % (38.7-73.9); Platelet Count 187 T/CUMM (130-400); Red Blood Count 3.55 MC/CUMM (3.8-5.5); Red Cell Distribution Width 16.5 % (9.3-17.3); White Blood Count 7.2 T/CUMM (4-12)
[2018-08-11 03:55] LABS: Calcium 8.4 MG/DL (8.5-10.1); Osmolality,Calculated 301.3 MOS/KG (273-304); Potassium 3.3 MMOL/L (3.5-5.1)
[2018-08-11] MEDS: INSULIN LISPRO 100 UNIT/ML SUBCUT SCH ×3 (08:08→16:48)
[2018-08-11] MEDS: CARVEDILOL 25 MG TABLET PO SCH ×2 (08:09→21:13)
[2018-08-11] MEDS: PSYLLIUM POWDER 3.7 GM/PACK PO SCH ×3 (08:09→21:17)
[2018-08-11] MEDS: ASPIRIN CHEW 81 MG TABLET PO SCH (08:09)
[2018-08-11] MEDS: RANOLAZINE 500 MG TABLET PO SCH ×2 (08:09→21:13)
[2018-08-11] MEDS: PANTOPRAZOLE 40 MG TABLET PO SCH ×2 (08:09→21:13)
[2018-08-11] MEDS: ROSUVASTATIN 20 MG TABLET PO SCH (08:09)
[2018-08-11] MEDS: SUCRALFATE 1 GM/10 ML UDCUP PO SCH ×4 (08:09→21:13)
[2018-08-11] MEDS: SPIRONOLACTONE 25 MG TABLET PO SCH (08:10)
[2018-08-11] MEDS: predniSONE 5 MG TABLET PO SCH (08:10)
[2018-08-11] MEDS: hydrALAZINE 25 MG TABLET PO SCH ×2 (08:10→21:13)
[2018-08-11] MEDS: ISOSORBIDE MONONITRATE 30 MG TABLET PO SCH (08:10)
[2018-08-11] MEDS: ALBUTEROL/IPRATROPIUM 3 ML NEB RESP TX SCH ×4 (08:15→19:16)
[2018-08-11] MEDS ORDERED: FUROSEMIDE 80 MG TABLET PO SCH (09:00)
[2018-08-11] MEDS ORDERED: PRAMIPEXOLE 0.25 MG TABLET PO PRN (12:05)
[2018-08-11] MEDS ORDERED: POTASSIUM CHLORIDE 20 MEQ TABLET PO ONE (12:18)
[2018-08-11] MEDS ORDERED: MAGNESIUM SULF RIDER 2 GM in PREMIX 1 EACH IV ONE ×2 (12:20→12:42)
[2018-08-11] MEDS ORDERED: ASCORBIC ACID 500 MG TABLET PO SCH (13:00)
[2018-08-11] MEDS: FUROSEMIDE 80 MG TABLET PO SCH ×2 (14:51→15:10)
[2018-08-11] MEDS: INSULIN GLARGINE 100 UNIT/ML SUBCUT SCH (21:13)
[2018-08-12 03:59] LABS: Basophils % 0.3 % (0.0-0.8); Eosinophils # 0.2 10*3/uL (0.0-0.87); Eosinophils % 2.3 % (0.00-10.9); Hematocrit 33.9 VOL% (42.0-52.0); Hemoglobin 11.4 GM/DL (14.0-18.0); Immature Granulocytes % 0.4 %; Immature Granulocytes Absolute 0.03 #; Lymphocytes # 0.5 10*3/uL (1.4-4.0); Lymphocytes % 6.8 % (21.2-54.2); Mean Corpuscular HGB Conc 33.6 GM/DL (32-36); Mean Corpuscular Hemoglobin 31 PG (27-34); Mean Corpuscular Volume 92.4 FL (87-102); Mean Platelet Volume 10.2 FL (9.6-12.0); Monocytes # 0.5 10*3/uL (0.11-0.8); Monocytes % 7.5 % (1.7-12.7); Neutrophils # 5.7 10*3/uL (1.4-7.4); Neutrophils % 82.7 % (38.7-73.9); Platelet Count 201 T/CUMM (130-400); Red Blood Count 3.67 MC/CUMM (3.8-5.5); Red Cell Distribution Width 16.2 % (9.3-17.3); White Blood Count 6.9 T/CUMM (4-12)
[2018-08-12 04:30] LABS: Calcium 8.6 MG/DL (8.5-10.1); Osmolality,Calculated 290.7 MOS/KG (273-304); Potassium 3.1 MMOL/L (3.5-5.1)
[2018-08-12 07:20] VITALS: BP 143/70
[2018-08-12] MEDS: ALBUTEROL/IPRATROPIUM 3 ML NEB RESP TX SCH (07:49)
[2018-08-12] MEDS ORDERED: SPIRONOLACTONE 25 MG TABLET PO SCH (08:30)
[2018-08-12] MEDS ORDERED: POTASSIUM CHLORIDE 20 MEQ TABLET PO ONE (08:50)
[2018-08-12] MEDS: PSYLLIUM POWDER 3.7 GM/PACK PO SCH (09:21)
[2018-08-12] MEDS: ISOSORBIDE MONONITRATE 30 MG TABLET PO SCH (09:22)
[2018-08-12] MEDS: FUROSEMIDE 80 MG TABLET PO SCH (09:22)
[2018-08-12] MEDS: hydrALAZINE 25 MG TABLET PO SCH (09:23)
[2018-08-12] MEDS: CARVEDILOL 25 MG TABLET PO SCH (09:23)
[2018-08-12] MEDS: ROSUVASTATIN 20 MG TABLET PO SCH (09:23)
[2018-08-12] MEDS: predniSONE 5 MG TABLET PO SCH (09:23)
[2018-08-12] MEDS: ASPIRIN CHEW 81 MG TABLET PO SCH (09:24)
[2018-08-12] MEDS: RANOLAZINE 500 MG TABLET PO SCH (09:24)
[2018-08-12] MEDS: PANTOPRAZOLE 40 MG TABLET PO SCH (09:24)
[2018-08-12] MEDS: SUCRALFATE 1 GM/10 ML UDCUP PO SCH (09:24)
[2018-08-12] MEDS: INSULIN LISPRO 100 UNIT/ML SUBCUT SCH (09:26)
== END 2018-08-12 10:32 | disposition home health service (06) | DRG 291 ==
LOC: N.ED 11:13 → N.EDINP 13:51 → N.TELES 14:09
PROVIDERS: ADMIT Internal Medicine; ATTEND Internal Medicine

== ENCOUNTER 2018-09-04 09:30 | Observation (INO) ==
[2018-09-04] MEDS ORDERED: PANTOPRAZOLE 40 MG VIAL IV STA (10:29)
[2018-09-04] MEDS ORDERED: PROMETHAZINE INJ 25 MG in SODIUM CHLORIDE 0.9% 50 ML IV STA (10:29)
[2018-09-04] MEDS ORDERED: SODIUM CHLORIDE 0.9% 1,000 ML IV STA ×2 (10:29→11:00)
[2018-09-04] MEDS ORDERED: PROMETHAZINE 25 MG/1 ML VIAL ONE (10:40)
[2018-09-04] MEDS ORDERED: PANTOPRAZOLE 40 MG VIAL IV ONE (10:40)
[2018-09-04 10:42] LABS: Basophils # 0.1 10*3/uL (0.0-0.2); Basophils % 0.5 % (0.0-0.8); Eosinophils # 0.2 10*3/uL (0.0-0.87); Eosinophils % 1.4 % (0.00-10.9); Hematocrit 38.1 VOL% (42.0-52.0); Hemoglobin 12.9 GM/DL (14.0-18.0); Immature Granulocytes % 0.7 %; Immature Granulocytes Absolute 0.08 #; Lymphocytes % 8.6 % (21.2-54.2); Mean Corpuscular HGB Conc 33.9 GM/DL (32-36); Mean Corpuscular Hemoglobin 31 PG (27-34); Mean Corpuscular Volume 91.6 FL (87-102); Mean Platelet Volume 10.4 FL (9.6-12.0); Monocytes # 1.1 10*3/uL (0.11-0.8); Monocytes % 9.3 % (1.7-12.7); Neutrophils # 9.4 10*3/uL (1.4-7.4); Neutrophils % 79.5 % (38.7-73.9); Platelet Count 263 T/CUMM (130-400); Red Blood Count 4.16 MC/CUMM (3.8-5.5); Red Cell Distribution Width 15.1 % (9.3-17.3); White Blood Count 11.8 T/CUMM (4-12)
[2018-09-04 10:59] LABS: Lactic Acid 1.5 MMOL/L (0.4-2.0)
[2018-09-04 11:00] LABS: Albumin 3.6 G/DL (3.4-5.0); Bilirubin,Total 0.7 MG/DL (0.2-1.0); Calcium 9.6 MG/DL (8.5-10.1); Osmolality,Calculated 300.5 MOS/KG (273-304); Potassium 5.1 MMOL/L (3.5-5.1); Total Protein 8.5 G/DL (6.4-8.3)
[2018-09-04] MEDS ORDERED: SODIUM CHLORIDE 0.9% 1,000 ML IV SCH (11:30)
[2018-09-04] MEDS ORDERED: PROMETHAZINE 25 MG/1 ML VIAL IM PRN (13:36)
[2018-09-04] MEDS ORDERED: ACETAMINOPHEN 325 MG TABLET PO PRN (13:36)
[2018-09-04] MEDS ORDERED: ONDANSETRON 4 MG/2 ML VIAL IV PRN (13:36)
[2018-09-04 14:20] LABS: Apearance,Urine Slightly Hazy (Clear); Bacteria,Urine Occasional /HPF (Few); Bilirubin,Urine Negative (Negative); Blood, Urine Negative (Negative); Glucose,Urine (UA) 50 mg/dL (Negative); Hyaline Casts,Urine 7 /LPF (0-3); Ketones,Urine 5 mg/dL (Negative); Nitrite,Urine Negative (Negative); Protein,Urine 100 MG/DL; RBC,Urine <1 /HPF (0-4); Squamous Epithelial Cell,Urine Occasional /HPF (0-10); Urine Color Yellow (Yellow); Urine Specific Gravity 1.016 (1.001-1.035); Urine Urobilinogen < 2.0 EU/DL (0.2-1.0); WBC,Urine 1 /HPF (0-6)
[2018-09-04] MEDS ORDERED: ALBUTEROL/IPRATROPIUM 3 ML NEB RESP TX PRN ×2 (16:44)
[2018-09-04] MEDS ORDERED: DEXTROSE 50% 25 GM/50 ML VIAL IV PRN (16:44)
[2018-09-04] MEDS ORDERED: DOCUSATE SODIUM 100 MG CAPSULE PO PRN (16:44)
[2018-09-04] MEDS ORDERED: GLUCAGON 1 MG VIAL IM PRN (16:44)
[2018-09-04] MEDS ORDERED: PROCHLORPERAZINE 10 MG TABLET PO PRN (16:44)
[2018-09-04] MEDS ORDERED: NITROGLYCERIN SL 0.4 MG TABLET SL PRN (16:53)
[2018-09-04] MEDS: NITROGLYCERIN SL 0.4 MG TABLET SL SCH (16:55)
[2018-09-04] MEDS: SUCRALFATE 1 GM/10 ML UDCUP PO SCH ×2 (18:04→21:52)
[2018-09-04] MEDS: INSULIN LISPRO 100 UNIT/ML SUBCUT SCH ×2 (18:04→21:50)
[2018-09-04] MEDS: SODIUM CHLORIDE 0.9% 1,000 ML IV SCH ×2 (19:16→21:46)
[2018-09-04] MEDS ORDERED: PSYLLIUM POWDER 3.7 GM/PACK PO SCH (21:00)
[2018-09-04] MEDS ORDERED: MULTIVITAMIN (INTRINSIC) CAPSULE PO SCH (21:00)
[2018-09-04] MEDS ORDERED: MULTIVITAMIN (CENTRUM) TABLET PO SCH (21:00)
[2018-09-04] MEDS ORDERED: ASCORBIC ACID 500 MG TABLET PO SCH (21:00)
[2018-09-04] MEDS ORDERED: COENZYME Q10 100 MG CAPSULE PO SCH (21:00)
[2018-09-04] MEDS ORDERED: OMEGA 3 ACID ETHYL ESTERS 1 GM CAPSULE PO SCH (21:00)
[2018-09-04] MEDS ORDERED: INSULIN GLARGINE 100 UNIT/ML SUBCUT SCH (21:00)
[2018-09-04] MEDS: CARVEDILOL 25 MG TABLET PO SCH (21:48)
[2018-09-04] MEDS: RANOLAZINE 500 MG TABLET PO SCH (21:52)
[2018-09-04] MEDS: PANTOPRAZOLE 40 MG TABLET PO SCH (21:52)
[2018-09-04] MEDS: MAGNESIUM OXIDE 400 MG TABLET PO SCH (21:52)
[2018-09-05] MEDS: SODIUM CHLORIDE 0.9% 1,000 ML IV SCH ×3 (01:29→11:50)
[2018-09-05 06:39] LABS: Basophils # 0.1 10*3/uL (0.0-0.2); Basophils % 0.8 % (0.0-0.8); Eosinophils # 0.2 10*3/uL (0.0-0.87); Eosinophils % 2.6 % (0.00-10.9); Hematocrit 31.1 VOL% (42.0-52.0); Hemoglobin 10.3 GM/DL (14.0-18.0); Immature Granulocytes % 1.1 %; Immature Granulocytes Absolute 0.07 #; Lymphocytes # 0.9 10*3/uL (1.4-4.0); Lymphocytes % 14.2 % (21.2-54.2); Mean Corpuscular HGB Conc 33.1 GM/DL (32-36); Mean Corpuscular Hemoglobin 31 PG (27-34); Mean Platelet Volume 10.3 FL (9.6-12.0); Monocytes # 0.7 10*3/uL (0.11-0.8); Monocytes % 10.8 % (1.7-12.7); Neutrophils # 4.6 10*3/uL (1.4-7.4); Neutrophils % 70.5 % (38.7-73.9); Platelet Count 177 T/CUMM (130-400); Red Blood Count 3.31 MC/CUMM (3.8-5.5); Red Cell Distribution Width 15.3 % (9.3-17.3); White Blood Count 6.6 T/CUMM (4-12)
[2018-09-05 07:08] LABS: Calcium 8.2 MG/DL (8.5-10.1); Osmolality,Calculated 302.8 MOS/KG (273-304); Potassium 4.4 MMOL/L (3.5-5.1)
[2018-09-05] MEDS: INSULIN LISPRO 100 UNIT/ML SUBCUT SCH ×2 (08:40→11:44)
[2018-09-05] MEDS: SUCRALFATE 1 GM/10 ML UDCUP PO SCH ×2 (08:40→11:43)
[2018-09-05] MEDS ORDERED: ROSUVASTATIN 20 MG TABLET PO SCH (09:00)
[2018-09-05] MEDS ORDERED: predniSONE 5 MG TABLET PO SCH (09:00)
[2018-09-05] MEDS ORDERED: ASPIRIN CHEW 81 MG TABLET PO SCH (09:00)
[2018-09-05] MEDS ORDERED: ISOSORBIDE MONONITRATE 30 MG TABLET PO SCH (09:00)
[2018-09-05] MEDS ORDERED: FOLIC ACID 1 MG TABLET PO SCH (09:00)
[2018-09-05] MEDS: RANOLAZINE 500 MG TABLET PO SCH (09:01)
[2018-09-05] MEDS: CARVEDILOL 25 MG TABLET PO SCH (09:01)
[2018-09-05] MEDS: PANTOPRAZOLE 40 MG TABLET PO SCH (09:01)
[2018-09-05] MEDS: MAGNESIUM OXIDE 400 MG TABLET PO SCH (09:01)
[2018-09-05 12:51] VITALS: BP 110/70
== END 2018-09-05 13:40 | disposition home or self-care (01) ==
LOC: N.ED 09:30 → N.EDINP 09:30 → N.5E 16:08
PROVIDERS: ADMIT Internal Medicine Geriatric Medicine; ATTEND Internal Medicine Geriatric Medicine